=== PATIENT | female | born 1960 | race Caucasian/White ===

== ENCOUNTER 2017-12-25 21:10 | Inpatient (IN) | payer OTHER ==
--- OUTSIDE RECORDS SUMMARY | 2017-12-25 21:12 | XMS REPORT ---
:1960 [facility] Address [address] [place] [address] Care Team Providers Name Role Phone DR NAZANIN RAMÍREZ Unavailable Unavailable Problems This patient has no known problems. Allergies, Adverse Reactions, Alerts This patient has no known allergies or adverse reactions. Medications This patient has no known medications. Results Test Description Test Time Test Comments Text Results Atomic Results Result Comments CHEM8+ i-STAT HSE 2017-04-14 07:20:00 Test Item Value Reference Range Comments SODIUM (test code=VIKI) 137 mmol/L 138-146 POTASSIUM (test code=KI) 4.3 mmol/L 3.5-4.9 CHLORIDE (test code=CLI) 101 mmol/L 98-109 CA IONIZED (test code=ICAI) 1.03 mmol/L 1.12-1.32 GLUCOSE (test code=GLUI) 124 mg/dL 75-100 TCO2 (test code=TCO2) 27 mmol/L 24-29 BUN (test code=BUN1) 40 mg/dL 8-26 CREATININE (test code=CREAI) 0.9 mg/dL 0.6-1.3 ANION GAP (test code=GANG) 15.0 mmol/L GLUCOMETER GLUCOSE- LAB USE [id number] 05:51:00 Test Item Value Reference Range Comments GLUCOMETER (test code=GMG) 104 mg/dL 70-100 GLUCOMETER GLUCOSE- LAB USE [id number] 05:50:00 Test Item Value Reference Range Comments GLUCOMETER (test code=GMG) 108 mg/dL 70-100
[2017-12-25] MEDS ORDERED: NA CHLORIDE 0.9% 1,000 ML ONE (23:28)
[2017-12-25] MEDS ORDERED: ONDANSETRON 4 MG (ODT) TAB ONE (23:37)
[2017-12-26 00:38] LABS: Absolute Lymphocytes (CBC) 1.6 K/uL (0.7-4.9); Absolute Monocytes 0.6 K/uL (0.1-1.3); Absolute Neutrophil 6.7 K/uL (1.8-8.0); Basophils % 1.5 % (0-1.3); Eosinophils % 6.9 % (0-4.4); Hematocrit 32.9 % (36.0-45.0); Lymphocytes % 16.7 % (15.3-44.8); MCH 26.3 pg (27.0-35.0); MCV 82.3 fL (80-100); MPV 7.4 fL (7.6-11.3); Monocytes % 6.4 % (3.3-12.3)
[2017-12-26 00:42] LABS: Protime INR 1.04
[2017-12-26 00:50] LABS: Arterial Blood Carboxyhemoglob 1.9 % (0-1.5); Blood Gas Oxyhemoglobin 90.3 % (94-97); Blood O2 Saturation 92.5 % (92-98.5)
[2017-12-26 00:59] LABS: Albumin 3.7 g/dL (3.2-5.5); Bilirubin Direct 0.2 mg/dL (0-0.2); Bilirubin Total 0.9 mg/dL (0.3-1.2); Protein, Total 7.4 g/dL (6.0-8.3)
[2017-12-26 01:00] LABS: CKMB Creatine Kinase MB 0.8 ng/ml (0.3-4.0)
[2017-12-26 01:07] LABS: Potassium 4.3 mEq/L (3.6-5.0)
[2017-12-26] MEDS ORDERED: ONDANSETRON 4 MG/2 ML VIAL ONE (01:22)
[2017-12-26] MEDS ORDERED: MEPERIDINE HCL 50 MG/ML AMP ONE (01:22)
[2017-12-26 01:24] LABS: Urine Blood NEGATIVE (NEG); Urine Glucose NEGATIVE (NEG); Urine Protein NEGATIVE (NEG); Urine Specific Gravity 1.025 (1.005-1.030); Urine pH 6.5 (5.0-7.0)
[2017-12-26] MEDS ORDERED: PROMETHAZINE 25 MG/ML VIAL ONE (02:25)
[2017-12-26] MEDS ORDERED: MEPERIDINE HCL 25 MG/0.5 ML ONE (02:30)
[2017-12-26] MEDS ORDERED: ACETAMINOPHEN 500 MG TAB PO PRN (02:45)
--- NOTE | 2017-12-26 02:48 | EDPHYS ---
Physician Documentation [facility] Name: Jacy Thompson Age: 57 yrs Sex: Female : 1960 Arrival Date: 12/25/2017 Time: 21:11 Bed 4 Private MD: ED Physician Oscar Rome HPI: 12/25 22:49 This 57 yrs old Female presents to ER via Wheelchair with complaints of Chest pkl Pain, Neck Pain, <24hrs Old, Shoulder Pain. 22:49 The patient or guardian reports chest pain that is located primarily in the right side pkl chest and neck. Onset: today, 6 hour(s) ago. Associated signs and symptoms: Pertinent positives: shortness of breath. The chest pain is described as sharp. S/P triple bypass at [facility] on 12/01/17.. Historical: - Allergies: 21:18 Ativan; la1 21:18 Codeine; la1 21:18 Compazine; la1 21:18 Morphine; la1 21:18 Reglan; la1 - Home Meds: 23:51 clonidine 0.2 mg/24 hr transdermal ptwk 1 patch once wkly [Active]; aspirin 81 mg Oral tl3 chew 1 tab once daily [Active]; atorvastatin 80 mg oral tab [Active]; Colace 100 mg oral cap [Active]; furosemide 20 mg Oral tab [Active]; gabapentin 300 mg oral cap [Active]; glipizide 5 mg Oral tab [Active]; hydrocodone-acetaminophen 5-334 mg/10 mL Oral soln [Active]; metoprolol tartrate 25 mg Oral tab [Active]; Zofran (as hydrochloride) 4 mg/5 mL Oral soln 10 mL 2 times per day [Active]; oxybutynin chloride 10 mg Oral tr24 1 tab once daily [Active]; pantoprazole 40 mg oral TbEC [Active]; paroxetine HCl 40 mg oral tab [Active]; potassium chloride 20 mEq Oral TbER [Active]; magnesium oxide 400 mg Oral cap 400 mg twice a day [Active]; - PMHx: 21:18 CVA; Diabetes - NIDDM; DVT; Endometrosis; Hypertension; Myocardial infarction; la1 - Immunization history:: Adult Immunizations up to date. - Social history:: Smoking status: Patient/guardian denies using tobacco. ROS: 22:49 Eyes: Negative for injury, pain, redness, and discharge, ENT: Negative for injury, pkl pain, and discharge, Neck: Negative for injury, pain, and swelling. 22:49 Cardiovascular: Positive for chest pain. 22:49 Respiratory: Positive for shortness of breath. 22:49 Abdomen/GI: Negative for abdominal pain, nausea, vomiting, and diarrhea. 22:49 Back: Negative for acute changes. 22:49 : Negative for urinary symptoms. 22:49 MS/extremity: Negative for acute changes. 22:49 Skin: Negative for rash. 22:49 Neuro: Negative for altered mental status. Exam: 22:49 Head/Face: Normocephalic, atraumatic. Eyes: Pupils equal round and reactive to light, pkl extra-ocular motions intact. Lids and lashes normal. Conjunctiva and sclera are non-icteric and not injected. Cornea within normal limits. Periorbital areas with no swelling, redness, or edema. ENT: Nares patent. No nasal discharge, no septal abnormalities noted. Tympanic membranes are normal and external auditory canals are clear. Oropharynx with no redness, swelling, or masses, exudates, or evidence of obstruction, uvula midline. Mucous membranes moist. Neck: Trachea midline, no thyromegaly or masses palpated, and no cervical lymphadenopathy. Supple, full range of motion without nuchal rigidity, or vertebral point tenderness. No Meningismus. Chest/axilla: Normal chest wall appearance and motion. Nontender with no deformity. No lesions are appreciated. Cardiovascular: Regular rate and rhythm with a normal S1 and S2. No gallops, murmurs, or rubs. Normal PMI, no JVD. No pulse deficits. Respiratory: Lungs have equal breath sounds bilaterally, clear to auscultation and percussion. No rales, rhonchi or wheezes noted. No increased work of breathing, no retractions or nasal flaring. Abdomen/GI: Soft, non-tender, with normal bowel sounds. No distension or tympany. No guarding or rebound. No evidence of tenderness throughout. Back: No spinal tenderness. No costovertebral tenderness. Full range of motion. Skin: Warm, dry with normal turgor. Normal color with no rashes, no lesions, and no evidence of cellulitis. MS/ Extremity: Pulses equal, no cyanosis. Neurovascular intact. Full, normal range of motion. Neuro: Awake and alert, GCS 15, oriented to person, place, time, and situation. Cranial nerves II-XII grossly intact. Motor strength 5/5 in all extremities. Sensory grossly intact. Cerebellar exam normal. Normal gait. Vital Signs: 21:19 Pulse 57; Resp 16; Temp 99.6(TE); Pulse Ox 100% on R/A; Weight 102.06 kg; Height 5 ft. la1 4 in. (162.56 cm) (M); 21:20 BP 153 / 68; la1 23:51 BP 164 / 70; Pulse 58; Resp 16; Pulse Ox 100% ; tl3 12/26 01:21 BP 131 / 55; Pulse 62; Resp 20; Pulse Ox 94% ; tl3 02:27 BP 120 / 60; Pulse 68; Resp 16; Pulse Ox 97% on 2 lpm NC; bb 03:24 BP 136 / 50; Pulse 59; Resp 18 S; Temp 98(O); Pulse Ox 98% on 2 lpm NC; bb 12/25 21:19 Body Mass Index 38.62 (102.06 kg, 162.56 cm) la1 MDM: 12/25 22:32 Patient medically screened. pkl 12/26 02:42 Data reviewed: vital signs, nurses notes, lab test result(s), EKG, radiologic studies, pkl CT scan, plain films. ED course: Talked to Dr. Donahue ( [facility] ), to give patient diuretics and let her go home. To follow up at [facility] this .. 12/25 22:35 Order name: Urine Dipstick--Ancillary (enter results); Complete Time: 02:04 rg2 12/25 22:47 Order name: Basic Metabolic Panel; Complete Time: 02:04 pkl 12/25 22:47 Order name: BNP; Complete Time: 01:03 pkl 12/25 22:47 Order name: CBC with Diff; Complete Time: 00:50 pkl 12/25 22:47 Order name: Ckmb; Complete Time: 02:04 pkl 12/25 22:47 Order name: CPK; Complete Time: 02:04 pkl 12/25 22:47 Order name: LFT's; Complete Time: 02:04 pkl 12/25 22:47 Order name: Magnesium; Complete Time: 02:04 pkl 12/25 22:47 Order name: PT-INR; Complete Time: 00:50 pkl 12/25 22:47 Order name: Ptt, Activated; Complete Time: 00:50 pkl 12/25 22:47 Order name: Troponin (emerg Dept Use Only); Complete Time: 01:03 pkl 12/25 22:47 Order name: XRAY Chest (1 view) pkl 12/25 22:47 Order name: D-Dimer; Complete Time: 00:50 pkl 12/25 22:47 Order name: ABG; Complete Time: 00:53 pkl 12/25 22:47 Order name: EKG; Complete Time: 22:48 pkl 12/25 22:47 Order name: Cardiac monitoring; Complete Time: 01:11 pkl 12/25 22:47 Order name: EKG - Nurse/Tech; Complete Time: 03:23 pkl 12/25 22:47 Order name: IV Saline Lock; Complete Time: 01:11 pkl 12/25 22:47 Order name: Labs collected and sent; Complete Time: 01:11 pkl 12/25 22:47 Order name: O2 Per Protocol; Complete Time: 01:11 pkl 12/25 22:47 Order name: O2 Sat Monitoring; Complete Time: 01:11 pkl 12/26 01:05 Order name: CT Chest For PE Angio pkl 12/26 02:48 Order name: CONS Physician Consult [facility] 12/26 02:48 Order name: [facility]NE 12/25 22:47 Order name: Urine Dipstick-Ancillary (obtain specimen); Complete Time: 03:23 pkl Administered Medications: 00:59 Drug: NS 0.9% 1000 ml Route: IV; Rate: 100 ml/hr; Site: left antecubital; Delivery: tl3 Primary tubing; 01:31 Follow up: IV Pause: 12/26/2017 01:31; IV Pause Reason: Patient to CT tl3 03:49 Follow up: IV Status: Infusion continued upon admission; IV Intake: 300ml bb 01:20 Drug: Zofran 4 mg Route: IVP; Site: left antecubital; tl3 01:29 Follow up: Response: No adverse reaction; Nausea is decreased tl3 01:20 Drug: Demerol 25 mg Route: IVP; Infused Over: 5 mins; Site: left antecubital; tl3 01:30 Follow up: Response: No adverse reaction; Pain is decreased tl3 02:13 Drug: Phenergan 12.5 mg Route: IVP; Site: left antecubital; bb 03:48 Follow up: Response: Nausea is decreased bb 02:13 Drug: Demerol 25 mg Route: IVP; Site: left antecubital; bb 03:48 Follow up: Response: Pain is decreased bb 02:46 Drug: Lasix 40 mg Route: IVP; Site: left antecubital; ea 03:48 Follow up: Response: No adverse reaction bb Disposition: 12/26/17 02:47 Hospitalization ordered by Carlitos Rose for Observation. Preliminary diagnosis is Chest pain. Acute dyspnea. S/P CABG. Bilateral plueral effusions. - Bed requested for Telemetry/MedSurg (observation). - Status is Observation. bb - Condition is Stable. - Problem is new. - Symptoms are unchanged. UTI on Admission? No Signatures: Dispatcher [employer] EDHanh Zhu, RN Oscar Montaño MD MD pkl Ballard, Brenda RN RN Tomasz James PA PA [id number] Chris Dugan RN RN la1 Agueda Peña RN RN ea Lowrey, Tammy RN RN tl3
--- NOTE | 2017-12-26 02:48 | ER ---
Nurse's Notes [facility] Name: Jacy Thompson Age: 57 yrs Sex: Female : 1960 Arrival Date: 12/25/2017 Time: 21:11 Bed 4 Private MD: Diagnosis: Chest pain. Acute dyspnea. S/P CABG. Bilateral plueral effusions Presentation: 12/25 21:16 Presenting complaint: Patient states: I had a triple bypass at [facility] with Dr Donahue on la1 12/01/2017 and last night I began getting a pain in my left shoulder and trouble catching my breath, right now it hurts when I take a breath and I am having pain in the right side of my neck and arm. Transition of care: patient was not received from another setting of care. Onset of symptoms was December 25, 2017. Care prior to arrival: None. 21:16 Method Of Arrival: Wheelchair la1 21:16 Acuity: TERRY 2 bb Historical: - Allergies: 21:18 Ativan; la1 21:18 Codeine; la1 21:18 Compazine; la1 21:18 Morphine; la1 21:18 Reglan; la1 - Home Meds: 23:51 clonidine 0.2 mg/24 hr transdermal ptwk 1 patch once wkly [Active]; aspirin 81 mg Oral tl3 chew 1 tab once daily [Active]; atorvastatin 80 mg oral tab [Active]; Colace 100 mg oral cap [Active]; furosemide 20 mg Oral tab [Active]; gabapentin 300 mg oral cap [Active]; glipizide 5 mg Oral tab [Active]; hydrocodone-acetaminophen 5-334 mg/10 mL Oral soln [Active]; metoprolol tartrate 25 mg Oral tab [Active]; Zofran (as hydrochloride) 4 mg/5 mL Oral soln 10 mL 2 times per day [Active]; oxybutynin chloride 10 mg Oral tr24 1 tab once daily [Active]; pantoprazole 40 mg oral TbEC [Active]; paroxetine HCl 40 mg oral tab [Active]; potassium chloride 20 mEq Oral TbER [Active]; magnesium oxide 400 mg Oral cap 400 mg twice a day [Active]; - PMHx: 21:18 CVA; Diabetes - NIDDM; DVT; Endometrosis; Hypertension; Myocardial infarction; la1 - Immunization history:: Adult Immunizations up to date. - Social history:: Smoking status: Patient/guardian denies using tobacco. Screenin:51 Abuse screen: Denies threats or abuse. Nutritional screening: No deficits noted. tl3 Tuberculosis screening: No symptoms or risk factors identified. Fall Risk None identified. Assessment: 23:40 General: Appears distressed, uncomfortable, well groomed, well developed, well tl3 nourished, Behavior is calm, cooperative, appropriate for age, anxious. Pain: Complains of pain in chest Pain radiates to left arm. Neuro: Level of Consciousness is awake, alert, obeys commands, Oriented to person, place, time, situation, Appropriate for age. Cardiovascular: Reports chest pain, nausea, Heart tones S1 S2 present Capillary refill < 3 seconds in right in left fingers. Respiratory: Airway is patent Trachea midline. GI: Bowel sounds present X 4 quads. : No signs and/or symptoms were reported regarding the genitourinary system. EENT: No signs and/or symptoms were reported regarding the EENT system. Derm: No signs and/or symptoms reported regarding the dermatologic system. 12/26 01:21 Reassessment: No changes from previously documented assessment. Patient and/or family tl3 updated on plan of care and expected duration. Pain level reassessed. Patient is alert, oriented x 3, equal unlabored respirations, skin warm/dry/pink. pt has periodic chest pain, Dr Rome notified of pain and critical value D-Dimer. 02:14 Reassessment: pt up to bedside commode states she is feeling nauseous, chest pain is bb worse Dr Rome notified, new orders received pt medicated see NOV. 02:46 Reassessment: pt resting with eyes closed, respirations even and unlabored, chest ea expansions even and symmetrical, no s/s of pain or discomfort at this time. 03:31 Reassessment: Patient is alert, oriented x 3, equal unlabored respirations, skin bb warm/dry/pink. IV site intact, patent, with fluids infusing, pt resting quietly. 03:48 Pain: Pain began 1 day ago. bb Vital Signs: 12/25 21:19 Pulse 57; Resp 16; Temp 99.6(TE); Pulse Ox 100% on R/A; Weight 102.06 kg; Height 5 ft. la1 4 in. (162.56 cm) (M); 21:20 BP 153 / 68; la1 23:51 BP 164 / 70; Pulse 58; Resp 16; Pulse Ox 100% ; tl3 0402 01:21 BP 131 / 55; Pulse 62; Resp 20; Pulse Ox 94% ; tl3 02:27 BP 120 / 60; Pulse 68; Resp 16; Pulse Ox 97% on 2 lpm NC; bb 03:24 BP 136 / 50; Pulse 59; Resp 18 S; Temp 98(O); Pulse Ox 98% on 2 lpm NC; bb 12/25 21:19 Body Mass Index 38.62 (102.06 kg, 162.56 cm) la1 ED Course: 12/25 21:11 Patient arrived in ED. as 21:18 Triage completed. la1 21:18 Arm band placed on left wrist. la1 21:33 EKG completed in triage. Results shown to MD. la1 22:32 Oscar Rome MD is Attending Physician. pkl 23:03 XRAY Chest (1 view) In Process Unspecified. EDMS 23:07 Rubina Rdz, SYLVIA is Primary Nurse. tl3 23:51 Patient has correct armband on for positive identification. Placed in gown. Bed in low tl3 position. Call light in reach. Side rails up X2. environmental monitoring technician on. Pulse ox on. NIBP on. 23:51 No provider procedures requiring assistance completed. Inserted Missed attempt(s): 22 tl3 gauge in right upper arm. 12/26 00:41 Missed attempt(s): 20 gauge in right antecubital area. Bleeding controlled, band aid bb applied, catheter tip intact. 00:41 Initial lab(s) drawn, by az, sent to lab. Inserted saline lock: 18 gauge in left bb antecubital area, using aseptic technique. Blood collected. 01:[address] via stretcher. tl3 01:27 Patient maintains SpO2 saturation greater than 95% on room air. tl3 01:53 CT Chest For PE Angio In Process Unspecified. EDMS 02:28 Oxygen administration via nasal cannula \T\ 2L/min. bb 02:45 Carlitos Rose MD is Hospitalizing Provider. pkl 03:48 Patient admitted, IV remains in place. bb Administered Medications: 00:59 Drug: NS 0.9% 1000 ml Route: IV; Rate: 100 ml/hr; Site: left antecubital; Delivery: tl3 Primary tubing; 01:31 Follow up: IV Pause: 12/26/2017 01:31; IV Pause Reason: Patient to CT tl3 03:49 Follow up: IV Status: Infusion continued upon admission; IV Intake: 300ml bb 01:20 Drug: Zofran 4 mg Route: IVP; Site: left antecubital; tl3 01:29 Follow up: Response: No adverse reaction; Nausea is decreased tl3 01:20 Drug: Demerol 25 mg Route: IVP; Infused Over: 5 mins; Site: left antecubital; tl3 01:30 Follow up: Response: No adverse reaction; Pain is decreased tl3 02:13 Drug: Phenergan 12.5 mg Route: IVP; Site: left antecubital; bb 03:48 Follow up: Response: Nausea is decreased bb 02:13 Drug: Demerol 25 mg Route: IVP; Site: left antecubital; bb 03:48 Follow up: Response: Pain is decreased bb 02:46 Drug: Lasix 40 mg Route: IVP; Site: left antecubital; ea 03:48 Follow up: Response: No adverse reaction bb Intake: 03:49 IV: 300ml; Total: 300ml. bb Output: 03:45 Urine: 800ml (Voided); Total: 800ml. lp1 Outcome: 02:47 Decision to Hospitalize by Provider. pkl 03:47 Admitted to Tele accompanied by tech, via stretcher, room 401, with oxygen, with chart, bb Report called to Josee WARD 03:47 Condition: stable 03:47 Instructed on the need for admit. 04:14 Patient left the ED. bb Signatures: Dispatcher [employer] EDMS Oscar Rome MD MD pkRuth Ann Bhakta Brenda RN RN bb Ashley Coulter RN SYLVIA lp1 Chris Dugan RN RN la1 Agueda Peña RN RN ea Lowrey, Tammy, RN RN tl3 Corrections: (The following items were deleted from the chart) 02:14 04/ 21:16 Acuity: TERRY 3 la1 bb
[2017-12-26] MEDS ORDERED: FUROSEMIDE 40 MG/4 ML VIAL ONE (03:02)
[2017-12-26 06:36] LABS: Urine Appearance CLEAR; Urine Bilirubin NEGATIVE (NEG); Urine Blood NEGATIVE (NEG); Urine Color YELLOW; Urine Glucose NEGATIVE (NEG); Urine Protein NEGATIVE (NEG); Urine Specific Gravity 1.015 (1.005-1.030)
[2017-12-26 06:53] LABS: Urine Microscopic Reflex NO UMIC
--- NOTE | 2017-12-26 07:06 | EKG ---
Test Date: 2017-12-25 Test Time: 21:29:45 [employer]: [place] MEASUREMENT RESULTS: Intervals: Rate: 55 MD: 166 QRSD: 90 QT: 432 QTc: 413 Cutler: P: 28 MD: 166 QRS: -1 T: 97 INTERPRETIVE STATEMENTS: Sinus bradycardia Non specific T wave abnormality Abnormal ECG Compared to ECG 10/05/2017 21:44:26 T-wave abnormality now present Electronically Signed On 12-26-17 07:05:29 CDT by Lew Yeung
--- NOTE | 2017-12-26 07:38 | RAD REPORT ---
EXAM DESCRIPTION: RAD - Chest Single View - 12/25/2017 11:03 pm CLINICAL HISTORY: Chest pain, left-sided shoulder pain, difficulty breathing, history of CABG December 01 COMPARISON: September 2017 TECHNIQUE: AP portable chest image was obtained 2259 hours . FINDINGS: Lung volumes are relatively low. Cardiac silhouette is enlarged from chamber enlargement, pleural effusion or a combination. Infiltrate or atelectasis are present at the left base. A small le ft pleural effusion is seen. Vasculature is mildly prominent. Minimal right pleural effusion is seen. Trachea is midline. Sternotomy wires are in place. No pneumothorax. No gross bony abnormality seen. No acute aortic findings suspected. IMPRESSION: Mild failure/ volume overload pattern is identifiable. Left lung base atelectasis is pre sent with small left greater than right pleural effusions. The atelectasis and pleural fluid can still be related to the recent CABG surgical change. The CHF/vo lume overload pattern would not necessarily be expected postsurgical change.
--- NOTE | 2017-12-26 07:47 | RAD REPORT ---
EXAM DESCRIPTION: CT - Chest For Pe Angio - 12/26/2017 1:53 am CLINICAL HISTORY: Chest pain, shortness of breath, bypass surgery December 01 A preliminary written report was provided at the time of the study, and the report was reviewed prio r to final dictation. COMPARISON: None. TECHNIQUE: Dynamically enhanced 3 mm thick images of the chest were obtained during administration o f approximately 150mL Isovue 370 IV contrast. Coronal and oblique reconstruction images were generate d and reviewed. Exam utilizes a protocol to evaluate the pulmonary arterial tree. All CT scans are performed using dose optimization technique as appropriate and may include automated exposure control or mA/KV adjustment according to patient size. FINDINGS: No pulmonary emboli are identified. The aorta as imaged shows no acute or suspicious finding. Mild cardiomegaly is present. Patient also has pericardial effusion 13 mm in thickness. Recent CABG surgical changes are noted to the chest wall . Bilateral lower lobe atelectasis is present more pronounced on the left. Small to moderate bilateral pleural effusions are present also more pronounced on the left. No pneumothorax. Interstitial marking s are prominent. No focal mass or consolidation. No mediastinal or hilar suspicious masses. No chest wall masses or abnormal axillary lymphadenopathy. A 15 millimeter right-side thyroid nodule is present not fully assessed. IMPRESSION: No pulmonary emboli identified. Left greater than right lung base atelectasis and left greater than right small to moderate pleural e ffusions. Cardiomegaly with pericardial effusion. Most of the pleural fluid, atelectasis and pericardial effusi on are related to the recent CABG surgery. A component of CHF/volume overload is not excluded.
[2017-12-26] MEDS: FENTANYL CITR 100 MCG/2 ML IV ONE ×2 (07:48→08:04)
--- NOTE | 2017-12-26 08:08 | P.HP ---
Certification for Inpatient Patient admitted to: Observation With expected LOS: <2 Midnights Patient will require the following post-hospital care: None Practitioner: I am a practitioner with admitting privileges, knowledge of patient current condition, hospital course, and medical plan of care. Services: Services provided to patient in accordance with Admission requirements found in Title 42 Section 412.3 of the Code of Federal Regulations Patient History Date of Service: 12/26/17 Reason for admission: Shortness of breath status post CABG History of Present Illness: Patient is a 57-year-old female who came to the hospital with difficulty breathing. Patient had a 2 vessel CABG performed a couple weeks ago at [facility]. Patient did well postoperatively and was discharged home. Since being at home she is noted she is more short of breath. She started retaining fluid and started becoming edematous. She came into the hospital for further evaluation. In the emergency room her chest x-ray revealed pulmonary edema. ER physician spoke to CT surgeon and [place] and he recommended keeping the patient at our facility in having the patient follow up on . After giving a dose of IV diuretics patient is restored status is improved. Clinically patient feels much better. Will continue with current plan of care and possible discharge home in the next 24-48 hr. Allergies codeine Allergy (Verified 12/26/17 07:50) Unknown lorazepam [From Ativan] Allergy (Verified 12/26/17 07:50) Unknown metoclopramide [From Reglan] Allergy (Verified 12/26/17 07:50) Unknown morphine Allergy (Verified 12/26/17 07:50) Unknown prochlorperazine [From Compazine] Allergy (Verified 12/26/17 07:50) Unknown co Allergy (Uncoded 10/05/17 06:11) Unknown - Past Medical/Surgical History Diabetic: Yes -: Endometriosis -: Hypertension -: Diabetes NIDD -: UTI -: Heart Atack -: Blood Cloths -: Part of thyroid Removed -: Right knee -: Right Ankle -: Hystorectomy - Family History Father Family History: Reviewed- Non-Contributory - Social History Alcohol use: No CD- Drugs: No Caffeine use: No Review of Systems 10-point ROS is otherwise unremarkable Physical Examination - Vital Signs Temperature: 99.2 F Blood Pressure: 118/65 Pulse: 66 Respirations: 18 Pulse Ox (%): 93 - Physical Exam General: Alert, In no apparent distress, Oriented x3 HEENT: Atraumatic, PERRLA, Mucous membr. moist/pink, EOMI, Sclerae nonicteric Neck: Supple, 2+ carotid pulse no bruit, No LAD, Without JVD or thyroid abnormality Respiratory: Clear to auscultation bilaterally, Normal air movement Cardiovascular: Regular rate/rhythm, Normal S1 S2, No murmurs Gastrointestinal: Normal bowel sounds, Soft and benign, Non-distended, No tenderness Musculoskeletal: No clubbing, No swelling, No tenderness Integumentary: No rashes Neurological: Normal gait, Normal speech, Normal strength at 5/5 x4 extr, Normal tone, Sensation intact, Cranial nerves 3-12 intact, Normal affect Lymphatics: No axilla or inguinal lymphadenopathy - Studies Laboratory Data (last 24 hrs) 12/26/17 00:10: PT 12.3, INR 1.04, APTT 26.2 12/26/17 00:10: WBC 9.8, Hgb 10.5 L, Hct 32.9 L, Plt Count 464 H 12/26/17 00:10: B-Natriuretic Peptide 277 H 12/26/17 00:10: Sodium 137, Potassium 4.3, BUN 22 H, Creatinine 1.10 H, Glucose 125 H, Magnesium 2.0, Total Bilirubin 0.9, AST 21, ALT 12, Alkaline Phosphatase 99 Assessment & Plan - Problems (Diagnosis) (1) Acute exacerbation of CHF (congestive heart failure) Current Visit: Yes Status: Acute (2) S/P CABG x 2 Current Visit: Yes Status: Acute (3) CAD (coronary artery disease) Current Visit: Yes Status: Acute (4) Renal insufficiency Current Visit: No Status: Acute (5) Diabetes mellitus Onset Date: 10/05/17 Current Visit: No Status: Chronic Qualifiers: (6) HTN (hypertension) Onset Date: 10/05/17 Current Visit: No Status: Chronic Qualifiers: - Plan 1. Echocardiogram to assess cardiac functioning after Coronary artery bypass grafting 2. Continue on current cardiac meds 3. Start patient on a Beta jessica 4. Cardiology consultation 5. Aggressive diuresis 6. Strict I's and O's 7. Repeat CXR 8. Daily weights 9. Education regarding diet and treatment of congestive heart failure 10. Outpatient follow with CT surgeon on Discharge Plan: Home Plan to discharge in: 48 Hours - Advance Directives Does patient have a Living Will: No Does patient have a Durable POA for Healthcare: No - Code Status/Comfort Care Code Status Assessed: Yes Code Status: Full Code Critical Care: No Time Spent Managing PTS Care (In Minutes): 55
[2017-12-26] MEDS: MEPERIDINE HCL 25 MG/0.5 ML IVP PRN (08:44)
[2017-12-26 08:45] VITALS: BMI 38.6
[2017-12-26] MEDS: ONDANSETRON 4 MG/2 ML VIAL IV PRN (08:49)
[2017-12-26] MEDS ORDERED: OXYBUTYNIN ER 5 MG TAB PO SCH (09:00)
[2017-12-26] MEDS ORDERED: CLONIDINE 0.2 MG/PATCH TD SCH (09:00)
[2017-12-26] MEDS ORDERED: POTASSIUM 25 MEQ EFFERV TAB PO ONE (09:00)
[2017-12-26] MEDS: NIFEDIPINE XL 90 MG TABLET PO SCH (09:00)
[2017-12-26] MEDS: KETOROLAC 30 MG/ML INJ IV PRN ×2 (09:52→20:19)
[2017-12-26] MEDS: DOCUSATE NA 100 MG CAP PO SCH (09:53)
[2017-12-26] MEDS: OXYBUTYNIN CHLORIDE 5 MG TAB PO SCH ×3 (09:53→20:27)
[2017-12-26] MEDS: ASPIRIN EC 81 MG TAB PO SCH (09:53)
[2017-12-26] MEDS: VALSARTAN 80 MG TAB PO SCH (09:53)
[2017-12-26] MEDS: ENOXAPARIN 40 MG/0.4 ML SQ SCH (09:53)
[2017-12-26] MEDS: CLOPIDOGREL 75 MG TABLET PO SCH (09:57)
[2017-12-26] MEDS: PARoxetine HCl 10 MG TAB PO SCH (09:57)
[2017-12-26] MEDS: METOPROLOL TAR 25 MG TAB PO SCH ×2 (09:57→20:19)
[2017-12-26] MEDS: FUROSEMIDE 40 MG/4 ML VIAL IV SCH ×2 (09:57→16:49)
[2017-12-26] MEDS: GABAPENTIN 300 MG CAP PO SCH ×3 (09:58→20:19)
[2017-12-26] MEDS: PANTOPRAZOLE 40MG TABLET PO SCH (09:58)
--- NOTE | 2017-12-26 11:19 | ECHO ---
HEIGHT: 5 ft 4 in WEIGHT: 225 lb 0.061 oz DATE OF STUDY: 12/26/[address]: Carlitos Rose MD 2-DIMENSIONAL: YES M.MODE: YES DOPPLER: YES COLOR FLOW: YES TDS: YES PORTABLE: NO DEFINITY: NO BUBBLE STUDY: NO DIAGNOSIS: CONGESTIVE HEART FAILURE CARDIAC HISTORY: CATHERIZATION: YES SURGERY: YES PROSTHETIC VALVE: NO PACEMAKER: NO MEASUREMENTS (cm) DIASTOLIC (NORMALS) SYSTOLIC (NORMALS) IVSd 1.2 (0.6-1.2) LA Diam (1.9-4.0) LVEF 58% LVIDd 3.3 (3.5-5.7) LVIDs 2.3 (2.0-3.5) %FS 30% LVPWd 1.2 (0.6-1.2) Ao Diam 2.4 (2.0-3.7) 2 DIMENSIONAL ASSESSMENT: RIGHT ATRIUM: DILATED LEFT ATRIUM: NORMAL RIGHT VENTRICLE: NORMAL LEFT VENTRICLE: MILD LEFT VENTRICULAR HYPERTROPHY TRICUSPID VALVE: NORMAL MITRAL VALVE: NORMAL PULMONIC VALVE: NORMAL AORTIC VALVE: NORMAL PERICARDIAL EFFUSION: NONE AORTIC ROOT: NORMAL LEFT VENTRICULAR WALL MOTION: NORMAL DOPPLER/COLOR FLOW: MILD TRICUSPID REGURGITATION. NORMAL RIGHT VENTRICULAR SYSTOLIC PRESSURE. COMMENTS: NORMAL LEFT VENTRICULAR EJECTION FRACTION. DILATED RIGHT ATRIUM. MILD LEFT VENTRICULAR HYPERTROPHY. SMALL, PERICARDIAL EFFUSION. TECHNOLOGIST: Elijah SNIDER
[2017-12-26] MEDS ORDERED: GLUCAGON 1 MG/VIAL IM PRN (11:34)
[2017-12-26] MEDS ORDERED: D50W 25 GM/50 ML SYRINGE IV PRN (11:34)
[2017-12-26] MEDS: VANCOMYCIN 1.75 GM in NA CHLORIDE 0.9% 500 ML IVPB SCH (12:27)
--- NOTE | 2017-12-26 13:21 | CON ---
History Of Present Illness: Ms. Thompson is a woman, who had bypass surgery about 3 weeks ago. It wa s done at [facility]. She saw her doctor last week and things seemed to go okay. Today, she is complainin g of a lot of chest pain more on the right side than anywhere else. It radiates to both shoulders. Even a slight breath not even a very deep breath at all exacerbates it. So far, she has not received any nonsteroidal anti-inflammatory nor steroid. Morphine, Demerol, and other narcotics have not mad e much difference. Her bypass surgery was about 3 weeks ago. She has underlying dyslipidemia, obesi ty, hypertension, and diabetes. She did several stress tests and heart caths in the distant past. A fter passing a nuclear stress test in September, she had more chest pain and ended up getting [facility] [place]. We do not have her coronary anatomy. Since she has been here in the hospital, cardiac enzyme s are normal. A CT angio of the chest reveals no pulmonary embolus, but there is pericardial and ple ural effusion, sternal wires. Physical Examination: Her sternal wound appears like it might be slightly infected. A chest x-ray reveals volume overload pattern, sternal wires. Hemoglobin is 10.5. Creatinine 1.1. Troponin 0.03. B-natriuretic peptide 377. We will get an echocardiogram to see if there is a significant effusion, often it is exaggerated by t he CT scan. If it is large or causing any impending tamponade, she will be transferred to a center that did her heart surgery. CELSA/SUE Voice ID: [id number] Report ID: [id number]
--- NOTE | 2017-12-26 15:07 | RAD REPORT ---
EXAM DESCRIPTION: US - Thyroid Para Parotid Gland - 12/26/2017 2:50 pm CLINICAL HISTORY: Thyroid nodule. COMPARISON: CT 12/26/2017 FINDINGS: The isthmus of the thyroid measures 3 mm. The right lobe of the thyroid measures 3.8 x 2.9 x 2.7 cm. 2.5 x 2.3 cm mildly complex nodule is pres ent in the right lobe. The left lobe appears surgically absent. IMPRESSION: 2.5 x 2.3 cm right thyroid nodule is mildly complex, but the does not demonstrate aggres sive features. Consider follow-up thyroid sonography in 6-12 months for surveillance purposes.
--- NOTE | 2017-12-26 15:42 | PN ---
Date of Progress Note: 12/26/2017 Subjective: The patient is seen and examined. Chart reviewed and case discussed with RN and Dr. Yeung. The patient is having significant amount of pain in her chest and sternotomy site. The patient had recent surgery. Review of Systems: Negative except as above. Medications: Reviewed. Physical Examination: Vital Signs: Temperature 99.2, heart rate 56, blood pressure 118/65, respirations 18, O2 93% on room air. General: Awake, alert, oriented x3, in some moderate distress due to pain. Obese, BMI 38. CV: S1, S2. No murmurs. Regular rate and rhythm. Peripheral pulses present. Respiratory: Moving air well bilaterally. No wheezing. Gastrointestinal: Abdomen is soft, nontender, nondistended. Positive bowel sounds. Extremities: No clubbing, cyanosis, or edema. Neurologic: Nonfocal. Skin: sternotomy site has mild erythema towards the bottom w mild opening of incision. No pus. Laboratory Data: Sodium 137, potassium 4.3, chloride 98, CO2 30, BUN 22, creatinine 1.10, glucose 125, calcium 9.2. WBC 9.8, hemoglobin 10.5, hematocrit 32.9, platelets 464. UA negative. Echocardiogram, EF 58% with dilated right atrium, mild left ventricular hypertrophy, small pericardial effusion. CT angio shows right-sided thyroid nodule at least 15 mm in size. Followup thyroid sonography could be performed. No pulmonary emboli. Left greater than right lung base atelectasis and left greater than right small to moderate pleural effusions. Cardiomegaly with pericardial effusion, atelectasis , and pericardial effusion are related to the recent CABG surgery. Component of CHF, volume overload is not excluded. Assessment And Plan: A 57-year-old female with: 1. Acute exacerbation of congestive heart failure, diastolic dysfunction. We will continue with CHF guidelines and diuresis. Fluid-restricted diet. Monitor I's and O's. 2. Status post recent coronary artery bypass graft x2. The patient does seem to have some erythema around the bottom of the wound. We will culture it and start on prophylactic IV antibiotics. 3. Coronary artery disease, [place] artery and [place] heart status post coronary artery bypass graft. 4. Acute kidney injury. We will continue with IV fluid hydration. 5. Diabetes mellitus type 2 with hyperglycemia without long-term use of insulin. 6. Essential hypertension stable. 7. Thyroid nodule on the right 15 mm. Thyroid U/S 8. Hypertensive heart disease. Plan: We will contact Radiology to see if they can see any signs of osteo or wound dehiscence on CAT scan imaging. The patient had a CT angio earlier. Appreciate Dr. Yeung' input. The patient has followup with her CT surgeon at the [facility] on . GULSHAN Voice ID: [id number] Report ID: [id number] MTDD
[2017-12-26] MEDS: INSULIN -REGULAR HUMAN 50 UNIT/0.5 ML ML SQ SCH ×2 (16:30→20:36)
[2017-12-26] MEDS: glipiZIDE 5 MG TAB PO SCH (16:48)
[2017-12-26] MEDS: ATORVASTATIN 80 MG TAB PO SCH (20:19)
[2017-12-26] MEDS ORDERED: VANCOMYCIN 1.5 GM in NA CHLORIDE 0.9% 500 ML IVPB SCH (21:00)
[2017-12-26] MEDS: HYDROCODONE/APAP 5/325 MG TAB PO PRN (22:29)
[2017-12-27 04:20] LABS: Absolute Lymphocytes (CBC) 1.4 K/uL (0.7-4.9); Absolute Monocytes 0.7 K/uL (0.1-1.3); Absolute Neutrophil 4.8 K/uL (1.8-8.0); Basophils % 1.2 % (0-1.3); Eosinophils % 10.2 % (0-4.4); Hematocrit 24.4 % (36.0-45.0); Lymphocytes % 18.5 % (15.3-44.8); MCV 81.3 fL (80-100); MPV 7.4 fL (7.6-11.3); Monocytes % 8.7 % (3.3-12.3)
[2017-12-27] MEDS: KETOROLAC 30 MG/ML INJ IV PRN ×3 (05:00→18:12)
[2017-12-27 05:04] LABS: Albumin 3.2 g/dL (3.2-5.5); Bilirubin Total 0.8 mg/dL (0.3-1.2); Phosphorus 5.1 mg/dL (2.5-4.3); Potassium 4.1 mEq/L (3.6-5.0); Protein, Total 6.4 g/dL (6.0-8.3)
[2017-12-27] MEDS: INSULIN -REGULAR HUMAN 50 UNIT/0.5 ML ML SQ SCH ×4 (07:30→20:49)
[2017-12-27] MEDS: ASPIRIN EC 81 MG TAB PO SCH (08:48)
[2017-12-27] MEDS: glipiZIDE 5 MG TAB PO SCH ×2 (08:48→17:04)
[2017-12-27] MEDS: METOPROLOL TAR 25 MG TAB PO SCH ×2 (08:48→20:31)
[2017-12-27] MEDS: PARoxetine HCl 10 MG TAB PO SCH (08:48)
[2017-12-27] MEDS: PANTOPRAZOLE 40MG TABLET PO SCH (08:48)
[2017-12-27] MEDS: DOCUSATE NA 100 MG CAP PO SCH (08:48)
[2017-12-27] MEDS: CLOPIDOGREL 75 MG TABLET PO SCH (08:48)
[2017-12-27] MEDS: GABAPENTIN 300 MG CAP PO SCH ×3 (08:52→20:30)
[2017-12-27] MEDS: VALSARTAN 80 MG TAB PO SCH (08:52)
[2017-12-27] MEDS: FUROSEMIDE 40 MG/4 ML VIAL IV SCH (08:54)
[2017-12-27] MEDS: ENOXAPARIN 40 MG/0.4 ML SQ SCH (08:55)
[2017-12-27] MEDS: NIFEDIPINE XL 90 MG TABLET PO SCH (08:56)
[2017-12-27] MEDS ORDERED: CLONIDINE 0.2 MG/PATCH TD SCH (09:00)
[2017-12-27] MEDS: OXYBUTYNIN CHLORIDE 5 MG TAB PO SCH ×3 (09:05→20:30)
[2017-12-27] MEDS: VANCOMYCIN 1.75 GM in NA CHLORIDE 0.9% 500 ML IVPB SCH (12:15)
[2017-12-27] MEDS: MEPERIDINE HCL 25 MG/0.5 ML IVP PRN (14:36)
--- NOTE | 2017-12-27 15:25 | PN ---
Date of Progress Note: 12/27/2017 Subjective: The patient is seen and examined. Chart reviewed and case discussed with RN. The patient feels significantly better. Pain is better tolerated. Medications: Reviewed. Review of Systems: Negative except as above. Physical Examination: Vital Signs: Temperature 97.8, heart rate 85, blood pressure 112/56, respirations 14, O2 95% on 2 L via nasal cannula. General: Awake, alert, oriented x3, somewhat ill-appearing, morbidly obese female. BMI 38. CV: S1, S2. No murmurs. Regular rate and rhythm. Peripheral pulses present. Respiratory: Moving air well bilaterally. No wheezing. Abdomen: Soft, nontender, nondistended. Positive bowel sounds. Extremities: No clubbing, cyanosis, or edema. Skin: The patient has improved erythema around the bottom of the sternotomy site, small opening in the sternotomy site in the area of body fold. No drainage. Neurologic: Nonfocal. Laboratory Data: Sodium 140, potassium 4.1, chloride 101, CO2 29, BUN 35, creatinine 1.73, glucose 90, calcium 8.3, phosphorus 5.1. WBC 7.8, H and H 8.1 and 24.4, platelets 370, neutrophils 61%. Addendum to CT angio chest shows bone and soft tissue changes at the sternum are well within normal limits for recent sternotomy. No abscess or abnormal fluid collections near the surgical site. No bone destruction or other finding to elevate probability of osteomyelitis along the sternotomy site. Echocardiogram shows EF 58%, dilated right atrium, mild left ventricular hypertrophy, small pericardial effusion. Assessment And Plan: A 57-year-old female with. 1. Acute exacerbation of congestive heart failure, diastolic dysfunction. We will continue diuresis. We will decrease Lasix dose due to bump in creatinine. Continue fluid restriction. Monitor I's and O's. 2. Status post recent coronary bypass graft. The patient is being monitored for possible infection of the wound site. Cultures negative to date and will continue prophylactic antibiotics. CT did not show any signs of infection. 3. Coronary artery disease, [place] artery and [place] heart status post coronary artery bypass grafting. 4. Acute kidney injury. Creatinine slightly bumped today. We will continue with IV fluids and decrease Lasix. 5. Diabetes mellitus type 2 with hyperglycemia with long-term use of insulin. We will continue sliding scale. 6. Essential hypertension, stable. 7. Thyroid nodule on the right. Ultrasound of the thyroid shows a 2.5 x 2.3 cm right thyroid nodule was mildly complex, but does not demonstrate any aggressive features. Followup thyroid sonography in 6 months. 8. Hypertensive heart disease. 9. Obesity, BMI 38. Plan: Follow up on cultures. Continue IV antibiotics. Adjust Lasix. /SUE Voice ID: [id number] Report ID: [id number] MTDD
[2017-12-27] MEDS: ATORVASTATIN 80 MG TAB PO SCH (20:30)
[2017-12-27] MEDS: HYDROCODONE/APAP 5/325 MG TAB PO PRN (23:12)
[2017-12-28] MEDS: KETOROLAC 30 MG/ML INJ IV PRN (00:36)
[2017-12-28] MEDS: ONDANSETRON 4 MG/2 ML VIAL IV PRN ×4 (00:36→21:44)
--- NOTE | 2017-12-28 02:41 | PN ---
Date of Progress Note: 12/27/2017 Ms. Thompson was admitted on 12/25/[address] Yeung on 12/26/2017. The patient is status post recent CABG about 3 weeks ago, came in with acute exacerbation of chronic diastolic congestive heart failure, chest pain. CT scan showed pericardial pleural effusion. There was some suspicion that the pericardial effusion may have been enlarged by CT. However, an echocardi ogram that was done yesterday showed small pericardial effusion without any tamponade. She is having significant renal insufficiency. Hemoglobin was down to 8.1. Her echocardiogram showed a normal ej ection fraction of 58% with some left ventricular hypertrophy. I would be careful with the diuresis, may use some gentle hydration and holding her diuresis. She certainly does not need any interventio n as far as her effusion and the pericardium is concerned. There is certainly a possibility that she may have some Ean syndrome with her chest pain and effusions. If her symptoms persist, may be a short course of steroid may be reasonable. Continue present regimen otherwise. TEAGAN/SUE Voice ID: [id number] Report ID: [id number]
[2017-12-28] MEDS: MEPERIDINE HCL 25 MG/0.5 ML IVP PRN ×5 (03:53→21:44)
[2017-12-28 05:16] LABS: Absolute Lymphocytes (CBC) 1.2 K/uL (0.7-4.9); Absolute Monocytes 0.6 K/uL (0.1-1.3); Absolute Neutrophil 5.6 K/uL (1.8-8.0); Basophils % 0.7 % (0-1.3); Eosinophils % 10.9 % (0-4.4); Hematocrit 23.7 % (36.0-45.0); Lymphocytes % 14.2 % (15.3-44.8); MCH 26.5 pg (27.0-35.0); MCV 80.8 fL (80-100); MPV 7.4 fL (7.6-11.3); RBC Red Blood Cell Count 2.93 M/uL (3.86-4.86)
[2017-12-28 05:19] LABS: Albumin 3.1 g/dL (3.2-5.5); Bilirubin Total 0.7 mg/dL (0.3-1.2); Potassium 3.9 mEq/L (3.6-5.0); Protein, Total 6.4 g/dL (6.0-8.3)
[2017-12-28] MEDS ORDERED: POTASSIUM CL SA 10 MEQ TAB PO ONE (05:44)
[2017-12-28] MEDS: INSULIN -REGULAR HUMAN 50 UNIT/0.5 ML ML SQ SCH ×4 (07:30→20:57)
[2017-12-28] MEDS: glipiZIDE 5 MG TAB PO SCH ×2 (07:51→16:32)
[2017-12-28] MEDS: PARoxetine HCl 10 MG TAB PO SCH (08:19)
[2017-12-28] MEDS: NIFEDIPINE XL 90 MG TABLET PO SCH (08:19)
[2017-12-28] MEDS: OXYBUTYNIN CHLORIDE 5 MG TAB PO SCH ×3 (08:20→20:49)
[2017-12-28] MEDS: METOPROLOL TAR 25 MG TAB PO SCH ×2 (08:20→20:50)
[2017-12-28] MEDS: ASPIRIN EC 81 MG TAB PO SCH (08:20)
[2017-12-28] MEDS: PANTOPRAZOLE 40MG TABLET PO SCH (08:20)
[2017-12-28] MEDS: DOCUSATE NA 100 MG CAP PO SCH (08:20)
[2017-12-28] MEDS: ENOXAPARIN 40 MG/0.4 ML SQ SCH (08:21)
[2017-12-28] MEDS: VALSARTAN 80 MG TAB PO SCH (08:21)
[2017-12-28] MEDS: GABAPENTIN 300 MG CAP PO SCH ×3 (08:21→20:48)
[2017-12-28] MEDS: CLOPIDOGREL 75 MG TABLET PO SCH (08:21)
[2017-12-28] MEDS ORDERED: FUROSEMIDE 40 MG/4 ML VIAL IV SCH (09:00)
[2017-12-28] MEDS: NA CHLORIDE 0.9% 1,000 ML IV SCH ×2 (10:16→22:20)
[2017-12-28] MEDS: VANCOMYCIN 1.75 GM in NA CHLORIDE 0.9% 500 ML IVPB SCH (11:40)
[2017-12-28] MEDS: predniSONE 20 MG TAB PO SCH ×2 (12:19→20:49)
[2017-12-28 12:25] LABS: Hematocrit 23.2 % (36.0-45.0)
--- NOTE | 2017-12-28 15:16 | PN ---
Subjective: The patient seen and examined, chart reviewed, and case discussed with RN. The patient still having some pain. Does report itching all over. States that this usually occurs when her kidney function is elevated. Review of Systems: Negative except as above. Medications: Reviewed. Physical Examination: Vital Signs: Temperature 99.2, heart rate 87, blood pressure 112/49, respirations 18, and O2 96% on 3 L via nasal cannula. General: Awake, alert, oriented x3. No acute distress. Obese female. CV: S1, S2. No murmurs. Regular rate and rhythm. Peripheral pulses present. Respiratory: Clear to auscultation bilaterally. No wheezing. No stridor. Gastrointestinal: Abdomen is soft, nontender, nondistended. Positive bowel sounds. Extremities: No clubbing, cyanosis, or edema. Skin: No erythema around the sternotomy site. Small opening around the sternotomy site in the area of the body fold with no drainage. No signs of infection. Neuro: Nonfocal. Laboratory Data: Sodium 137, potassium 3.9, chloride 99, CO2 31, BUN 38, creatinine 1.5, glucose 101, and calcium 8.4. Iron 7, total iron binding capacity 293, transferrin 209, and ferritin 135. WBC 8.4, H and H 7.8, 27.3, and platelets 355. Wound culture with sternotomy site shows 2+ mixed talha. Assessment And Plan: A 57-year-old female with; 1. Acute exacerbation of congestive heart failure, diastolic dysfunction. We will adjust Lasix as creatinine has elevated. Continue fluid restriction and monitor I's and O's. 2. Sternotomy wound site infection, likely just small opening without any drainage with no active infection at this time. The patient is on empiric antibiotics. we will deescalate. Cultures remain negative. No signs of infection on CT scan. 3. Coronary artery disease, [place] artery, [place] heart, status post coronary bypass grafting without angina. 4. Acute kidney injury. Creatinine slightly improved. We will discontinue Lasix and start IV fluids. 5. Diabetes mellitus type 2 with hyperglycemia and long-term use of insulin. we will continue sliding scale. 6. Essential hypertension stable. 7. Obesity, body mass index 38. 8. Hypertensive heart disease. 9. Thyroid nodule on the right lobe. The patient will need followup thyroid sonography in 6 months. 10. Fe def anemia: acute on chronic. Monitor HH, transfuse if <7 Plan: We will start low-dose steroids IV fluids. Monitor creatinine. Likely discharge in the next 24-48 hours. GULSHAN Voice ID: [id number] Report ID: [id number] MTDD
[2017-12-28] MEDS: FERROUS SULFATE 325 MG TAB PO SCH (16:32)
[2017-12-28] MEDS: ATORVASTATIN 80 MG TAB PO SCH (20:49)
[2017-12-28] MEDS: HYDROCODONE/APAP 5/325 MG TAB PO PRN (22:03)
[2017-12-29] MEDS ORDERED: PROMETHAZINE 25 MG/ML VIAL IV ONE (00:49)
[2017-12-29] MEDS: MEPERIDINE HCL 25 MG/0.5 ML IVP PRN ×2 (03:58→08:09)
[2017-12-29 04:12] LABS: Absolute Lymphocytes (CBC) 0.7 K/uL (0.7-4.9); Absolute Monocytes 0.4 K/uL (0.1-1.3); Absolute Neutrophil 6.2 K/uL (1.8-8.0); Basophils % 0.4 % (0-1.3); Hematocrit 24.1 % (36.0-45.0); Lymphocytes % 9.8 % (15.3-44.8); MCH 25.9 pg (27.0-35.0); MCV 81.4 fL (80-100); MPV 7.5 fL (7.6-11.3); Monocytes % 5.8 % (3.3-12.3); RBC Red Blood Cell Count 2.96 M/uL (3.86-4.86)
[2017-12-29 04:48] LABS: Bilirubin Total 0.5 mg/dL (0.3-1.2); Potassium 4.3 mEq/L (3.6-5.0); Protein, Total 6.6 g/dL (6.0-8.3)
[2017-12-29] MEDS: INSULIN -REGULAR HUMAN 50 UNIT/0.5 ML ML SQ SCH ×3 (07:30→16:30)
[2017-12-29] MEDS: ENOXAPARIN 40 MG/0.4 ML SQ SCH (07:57)
[2017-12-29] MEDS: PARoxetine HCl 10 MG TAB PO SCH (07:58)
[2017-12-29] MEDS: ASPIRIN EC 81 MG TAB PO SCH (07:58)
[2017-12-29] MEDS: GABAPENTIN 300 MG CAP PO SCH ×2 (07:58→13:28)
[2017-12-29] MEDS: glipiZIDE 5 MG TAB PO SCH ×2 (07:58→17:18)
[2017-12-29] MEDS: predniSONE 20 MG TAB PO SCH (07:58)
[2017-12-29] MEDS: FERROUS SULFATE 325 MG TAB PO SCH (07:58)
[2017-12-29] MEDS: PANTOPRAZOLE 40MG TABLET PO SCH (07:58)
[2017-12-29] MEDS: VALSARTAN 80 MG TAB PO SCH (07:59)
[2017-12-29] MEDS: OXYBUTYNIN CHLORIDE 5 MG TAB PO SCH ×2 (07:59→13:28)
[2017-12-29] MEDS: DOCUSATE NA 100 MG CAP PO SCH (07:59)
[2017-12-29] MEDS: METOPROLOL TAR 25 MG TAB PO SCH (07:59)
[2017-12-29] MEDS: CLOPIDOGREL 75 MG TABLET PO SCH (07:59)
[2017-12-29 08:03] VITALS: O2SAT 98
[2017-12-29] MEDS: HYDROCODONE/APAP 5/325 MG TAB PO PRN ×2 (12:20→17:18)
[2017-12-29] MEDS: NA CHLORIDE 0.9% 1,000 ML IV SCH (12:21)
[2017-12-29 13:14] LABS: Hematocrit 25.2 % (36.0-45.0)
[2017-12-29 16:35] VITALS: BP 142/72; TEMP 98.3
[2017-12-30] MEDS ORDERED: VANCOMYCIN 1.75 GM in NA CHLORIDE 0.9% 500 ML IVPB SCH ×2
--- NOTE | 2017-12-30 06:04 | DS ---
Date of Discharge: 12/29/2017 Consultants: Lew Yeung M.D. and Francisco Gentile M.D. with Cardiology. Admitting Diagnoses: 1.Acute congestive heart failure exacerbation. 2.Recent coronary artery bypass graft. 3.Coronary artery disease, [place] artery and [place] heart without angina. 4.Renal insufficiency. 5.Diabetes mellitus type 2. 6.Hypertension. Discharge Diagnoses: 1.Acute exacerbation of congestive heart failure, diastolic dysfunction, improved. 2.Sternotomy wound site infection. Cultures negative. 3.Coronary artery disease, [place] artery, and [place] heart, status post coronary artery bypass graft without angina. 4.Acute kidney injury, creatinine improved. 5.Diabetes mellitus type 2 with hyperglycemia with long-term use of insulin. 6.Essential hypertension, stable. 7.Obesity, BMI 38. 8.Hypertensive heart disease. 9.Thyroid nodule on the right lobe. Follow up sonography in 6 months. 10.Iron deficiency anemia. 11.Hypertensive heart disease. Hospital Course: The patient is a 57-year-old female, who recently had CABG at [facility], who c omes in with shortness of breath. The patient was felt to have CHF exacerbation. She was placed on gentle diuresis due to her acute kidney injury. The patient was also seen by Cardiology. She did recio ve significant pain at her sternotomy site and was thought to have possible Ean syndrome. She w as started on steroids and NSAIDs. The patient had improvement in her symptoms. She did have a drop in her hemoglobin; however, repeat levels came up to 8.1. Her D-dimer was elevated. CT angio was d one to rule out PE, which was negative. Incidental finding of thyroid nodule was found. Ultrasound was done, which she was benign, however, recommended 6-month followup. The patient was instructed to provide copies of her medical records to her primary care physician and to have her PCP follow up wi th thyroid nodules in 6 months with a repeat thyroid ultrasound and further evaluation. The patient has had a history of left thyroid nodule, which was benign. On CT she was also not found to have any evidence of infection in the sternotomy site. No fluid collection, no suspicious findings. The pat ient was placed on empiric antibiotics. Her wound culture was obtained from the sternotomy site, i ch showed 2+ mixed talha. The patient was doing well. Her kidney function improved. Echocardiogram was repeated, which did not show any significant effusion, just showed a small pericardial effusion. Her EF was 58%, did show left ventricular hypertrophy. The patient was doing well. She was able t o ambulate. She was weaned off oxygen. Her pain was well controlled. The patient was then cleared for discharge from Cardiology standpoint and was sent home in a stable condition. Activity: No driving or operating heavy machinery while on narcotics. Followup: Follow up with primary care physician in [place] within a week. Followup with CT surgeon at [facility] within one week for wound check. Follow up with irrigation equipment mechanic in [place], Dr. Marv loja, in 2 weeks. Return to ER for worsening condition. Medications: As per medication reconciliation list. Total time spent discharging patient was 41 minute. Physical Examination: General: Awake, alert, oriented, no acute distress. CV: S1, S2. No murmurs. Respiratory: Moving air well bilaterally. Abdomen: Soft, nontender, and nondistended. Positive bowel sounds. Extremities: No clubbing, cyanosis, or edema. Skin: Small area of erythema surrounding a small opening in the sternotomy site. No drainage or acute signs of infection. Neuro: Nonfocal. SA/MODL Voice ID: [id number] Report ID: [id number]
== END 2017-12-29 18:06 | disposition home or self-care (01) | DRG 292 ==
LOC: ER 21:10 → ERHOLD 12-26 02:55 → 4TH 12-26 03:24 → OBSVTOIN 12-27 02:55
PROVIDERS: ADMIT Hospitalist; ATTEND Hospitalist
DX: I11.0 Hypertensive heart disease with heart failure (principal); N17.9 Acute kidney failure, unspecified; I50.31 Acute diastolic (congestive) heart failure; I25.10 Atherosclerotic heart disease of native coronary artery without angina pectoris; Z95.1 Presence of aortocoronary bypass graft; E11.65 Type 2 diabetes mellitus with hyperglycemia; Z79.4 Long term (current) use of insulin; E66.9 Obesity, unspecified; Z68.38 Body mass index [BMI] 38.0-38.9, adult; E04.1 Nontoxic single thyroid nodule; D50.9 Iron deficiency anemia, unspecified
CPT/HCPCS: 36415; 71045; 71275; 76536; 80048; 80053; 80076; 80202; 81003; 82550; 82553; 82565; 82728; 82805; 82962; 83540; 83735; 83880; 84100; 84466; 84484; 84520; 85014; 85018; 85025; 85379; 85610; 85730; 87070; 87205; 93005; 93306; 96361; 96374; 96375; 99285; G0378; J1650; J2175; J2405; J2550; J3010; J7030; J7512; Q9967

== ENCOUNTER 2017-12-31 14:26 | Emergency (ER) | payer OTHER ==
--- OUTSIDE RECORDS SUMMARY | 2017-12-31 14:28 | XMS REPORT ---
:1960 [facility] Address [address] [place] [address] Care Team Providers Name Role Phone DR [...] code=GANG) 15.0 mmol/L GLUCOMETER GLUCOSE- LAB USE [id number] 05:51:00 Test Item Value Reference Range Comments GLUCOMETER (test code=GMG) 104 mg/dL 70-100 GLUCOMETER GLUCOSE- LAB USE [id number] 05:50:00 Test Item Value Reference Range Comments GLUCOMETER (test code=GMG) 108 mg/dL 70-100
[2017-12-31 15:00] LABS: Absolute Lymphocytes (CBC) 1.1 K/uL (0.7-4.9); Absolute Monocytes 0.4 K/uL (0.1-1.3); Absolute Neutrophil 11.2 K/uL (1.8-8.0); Basophils % 0.2 % (0-1.3); Eosinophils % 0.2 % (0-4.4); Hematocrit 29.6 % (36.0-45.0); Lymphocytes % 8.6 % (15.3-44.8); MPV 7.5 fL (7.6-11.3); Monocytes % 3.1 % (3.3-12.3); RBC Red Blood Cell Count 3.69 M/uL (3.86-4.86)
--- NOTE | 2017-12-31 15:07 | RAD REPORT ---
EXAM DESCRIPTION: RAD - Chest Single View - 12/31/2017 2:59 pm CLINICAL HISTORY: Shortness of breath. COMPARISON: 12/25/2017 FINDINGS: Portable technique limits examination quality. Left basilar lung opacity is noted likely representing a combination atelectasis and pleural effusion . It appears similar to the comparative chest radiograph. The heart is moderately enlarged in size wi th sternotomy wires present. No displaced fractures.
[2017-12-31 15:22] LABS: Protime INR 1.11
[2017-12-31 15:23] LABS: Albumin 3.6 g/dL (3.2-5.5); Bilirubin Direct 0.1 mg/dL (0-0.2); Bilirubin Total 0.5 mg/dL (0.3-1.2); Potassium 4.4 mEq/L (3.6-5.0); Protein, Total 7.4 g/dL (6.0-8.3)
[2017-12-31 15:28] LABS: CKMB Creatine Kinase MB 0.9 ng/ml (0.3-4.0)
[2017-12-31] MEDS ORDERED: FUROSEMIDE 40 MG/4 ML VIAL ONE (17:33)
[2017-12-31] MEDS ORDERED: NITROGLYCERIN 1 GM PKT TD ONE (17:33)
[2017-12-31 18:42] LABS: Anisocytosis 1+; Blood Morphology Comment NOTED (NOT SEEN); Platelet Estimate ADEQ; Urine White Blood Cell Casts OK
[2017-12-31 18:50] LABS: Urine Blood NEGATIVE (NEG); Urine Glucose NEGATIVE (NEG); Urine Protein NEGATIVE (NEG); Urine Specific Gravity 1.015 (1.005-1.030); Urine pH 7.5 (5.0-7.0)
[2017-12-31] MEDS ORDERED: ONDANSETRON 4 MG/2 ML VIAL ONE (20:09)
[2017-12-31] MEDS ORDERED: MEPERIDINE HCL 25 MG/0.5 ML ONE ×2 (20:17→21:48)
--- NOTE | 2017-12-31 20:45 | ER ---
Nurse's Notes [facility] Name: Jacy Thompson Age: 57 yrs Sex: Female : 1960 Arrival Date: 12/31/2017 Time: 14:30 Bed 14 Private MD: Diagnosis: Acute combined systolic (congestive) and diastolic (congestive) heart failure;Chest pain, unspecified;S/P CABG;Pleural effusion;Dyspnea Presentation: 12/31 14:40 Presenting complaint: Patient states: increased shortness of breath and chest ss discomfort x 2 days. Transition of care: patient was not received from another setting of care. Onset of symptoms was December 29, 2017. Care prior to arrival: Medication(s) given: ASA, 81 mg, x 4. 14:40 Acuity: TERRY 3 14:40 Method Of Arrival: EMS: [facility] 14:40 Note Pt reports she was recently admitted to [facility] and discharged two ss days ago. Triage Assessment: 14:30 Respiratory: Onset: The symptoms/episode began/occurred yesterday. rb1 14:30 Respiratory: the patient has mild shortness of breath. rb1 Historical: - Allergies: 14:30 Ativan; rb1 14:30 Codeine; rb1 14:30 Compazine; rb1 14:30 Morphine; rb1 14:30 Reglan; rb1 14:30 Demerol; rb1 - Home Meds: 14:30 aspirin 81 mg Oral chew 1 tab once daily [Active]; atorvastatin 80 mg Oral tab rb1 [Active]; clonidine 0.2 mg/24 hr transdermal ptwk 1 patch once wkly [Active]; Colace 100 mg Oral cap [Active]; furosemide 20 mg Oral tab [Active]; gabapentin 300 mg Oral cap [Active]; glipizide 5 mg Oral tab [Active]; hydrocodone-acetaminophen 5-334 mg/10 mL Oral soln [Active]; magnesium oxide 400 mg Oral cap 400 mg twice a day [Active]; metoprolol tartrate 25 mg Oral tab [Active]; oxybutynin chloride 10 mg Oral tr24 1 tab once daily [Active]; pantoprazole 40 mg Oral TbEC [Active]; paroxetine HCl 40 mg Oral tab [Active]; potassium chloride 20 mEq Oral TbER [Active]; Zofran (as hydrochloride) 4 mg/5 mL Oral soln 10 mL 2 times per day [Active]; - PMHx: 14:30 CVA; Diabetes - NIDDM; DVT; Endometrosis; Hypertension; Myocardial infarction; rb1 - PSHx: 14:30 cardiac cath; Hysterectomy; Tonsillectomy; partial thyroid; Appendectomy; rb1 Cholecystectomy; - Immunization history:: Adult Immunizations up to date. - Social history:: Smoking status: Patient/guardian denies using tobacco. Screenin:30 Abuse screen: Denies threats or abuse. Nutritional screening: No deficits noted. rb1 Tuberculosis screening: No symptoms or risk factors identified. Fall Risk None identified. Assessment: 14:30 General: Appears uncomfortable, Behavior is calm, cooperative, Denies fever. Pain: rb1 Complains of pain in mid-sternal area Pain currently is 7 out of 10 on a pain scale. Neuro: Level of Consciousness is awake, alert, obeys commands, Oriented to person, place, time, situation. Cardiovascular: Rhythm is regular. Respiratory: Airway is patent Respiratory effort is even, unlabored, Respiratory pattern is regular, symmetrical, Breath sounds are clear Breath sounds are diminished in left posterior lower lobe. GI: Reports nausea. : No signs and/or symptoms were reported regarding the genitourinary system. Derm: Skin is pink, warm \\T\\ dry. Musculoskeletal: Range of motion: intact in all extremities. 15:30 Reassessment: Patient appears in no apparent distress at this time. Pt. is resting with rb1 eyes closed, respirations even, unlabored. 16:30 Reassessment: Patient appears in no apparent distress at this time. Patient and/or rb1 family updated on plan of care and expected duration. Pain level reassessed. Patient is alert, oriented x 3, equal unlabored respirations, skin warm/dry/pink. 17:27 Reassessment: Patient appears in no apparent distress at this time. No changes from rb1 previously documented assessment. IV infiltrated when I attempted to administer the Lasix 40 mg IVP; Provider notified. 18:00 Reassessment: KAYLIE Davis is at bedside attempting an IV. Provider notified. rb1 18:30 Reassessment: Patient appears in no apparent distress at this time. Patient and/or rb1 family updated on plan of care and expected duration. Pain level reassessed. Patient is alert, oriented x 3, equal unlabored respirations, skin warm/dry/pink. Pt. updated on POC. 18:32 Reassessment: KAYLIE Davis stated, "Elisabeth comes in tonight, I'm just going to ask her to rb1 insert a midline."Provider notified. 19:21 General: Appears in no apparent distress. uncomfortable, Behavior is calm, cooperative, tl2 appropriate for age, Denies fever. Pain: Complains of pain in mid-sternal area. Neuro: Level of Consciousness is awake, alert, obeys commands, Oriented to person, place, time, situation. Cardiovascular: Rhythm is sinus bradycardia. Respiratory: Airway is patent Respiratory effort is even, unlabored, Respiratory pattern is regular, symmetrical, Breath sounds are diminished in left posterior lower lobe. GI: Reports nausea. : No signs and/or symptoms were reported regarding the genitourinary system. Derm: Skin is pale. 19:21 Reassessment: Awaiting dispo decision from provider. tl2 19:50 Reassessment: Pt complained of chest pain and nausea after getting up to go to bathroom. Discussed with Matheus MELTON and pt to get Zofran and Demerol. 20:16 Reassessment: Pt becomes short of breath and pain increases when she ambulates. DENTAL SPECIALIST tl2 ordered for pt to stay in bed, robby ordered. 21:36 Reassessment: Pt states shortness of breath has improved, requested to have more pain tl2 and nausea medication before transport. DENTAL SPECIALIST notified, new orders see NOV. 21:52 Reassessment: Pt stable and ready for transport. tl2 Vital Signs: 14:39 BP 175 / 79; Pulse 45; Resp 16; Temp 98.4(O); Pulse Ox 98% on R/A; Weight 104.33 kg; ss Height 5 ft. 4 in. (162.56 cm); Pain 5/10; 15:30 BP 168 / 74; Pulse 41; Resp 17; Pulse Ox 98% on R/A; rb1 16:30 BP 159 / 64; Pulse 41; Resp 18; Pulse Ox 98% on R/A; rb1 17:19 BP 152 / 61; Pulse 41; Resp 17; Pulse Ox 99% on R/A; rb1 18:30 BP 150 / 78; Pulse 41; Resp 15; Pulse Ox 99% on R/A; rb1 19:21 Pulse 41; Resp 20; Pulse Ox 99% on R/A; tl2 20:01 BP 191 / 83; Pulse 39; Resp 18; Pulse Ox 100% on R/A; Pain 8/10; fc 20:16 BP 179 / 91; Pulse 49; Resp 20; Pulse Ox 100% on R/A; tl2 21:36 BP 175 / 85; Pulse 42; Resp 22; Pulse Ox 99% on R/A; tl2 14:39 Body Mass Index 39.48 (104.33 kg, 162.56 cm) ED Course: 14:30 Patient arrived in ED. rb1 14:30 Patient has correct armband on for positive identification. Bed in low position. Call rb1 light in reach. Side rails up X 1. cylinder die machine helper on. Pulse ox on. NIBP on. 14:39 Matheus Gresham NP is PHCP. pm1 14:39 Aniket Vera MD is Attending Physician. pm1 14:39 Arm band placed on right wrist. ss 14:42 Triage completed. ss 14:46 EKG done, by ED staff, reviewed by Matheus Gresham NP. jb1 14:52 Initial lab(s) drawn, by in, sent to lab. Inserted saline lock: 24 gauge in left upper hj arm, using aseptic technique. Blood collected. 14:59 XRAY Chest (1 view) In Process Unspecified. EDMS 15:07 Lorrie Medrano, RN is Primary Nurse. rb1 18:45 Inserted 18 gauge 10 cm midline to right upper basilic vein on first attempt. line with fc good blood return and flushes well. 19:00 Report given to SYLVIA Hannon. rb1 20:15 Thompson cath inserted, using sterile technique, 16 Fr., by sewage screen operator, balloon inflated, to tl2 gravity drainage, returned clear yellow urine. 21:54 No provider procedures requiring assistance completed. Patient transferred, IV remains tl2 in place. Administered Medications: 17:20 Drug: Nitro-Bid Ointment 2 % 1 inches Route: Transdermal; Site: anterior chest wall; rb1 19:13 Drug: Lasix 40 mg {Note: Had to wait for IV access..} Route: IVP; Site: right upper arm;tl2 21:55 Follow up: Response: No adverse reaction; Marked relief of symptoms tl2 19:56 Drug: Zofran 4 mg Route: IVP; Site: right upper arm; fc 20:30 Follow up: Response: No adverse reaction; Nausea is decreased tl2 20:01 Drug: Demerol 25 mg Route: IVP; Site: right upper arm; fc 20:30 Follow up: Response: No adverse reaction; Pain is decreased tl2 21:38 Drug: Demerol 25 mg Route: IVP; Site: right upper arm; tl2 21:56 Follow up: Response: No adverse reaction tl2 21:39 Drug: Phenergan 12.5 mg Route: IVP; Site: right upper arm; tl2 21:56 Follow up: Response: No adverse reaction tl2 Output: 21:55 Urine: 900ml (Thompson); Total: 900ml. tl2 Outcome: 20:44 ER care complete, transfer ordered by . pm1 21:54 Transferred by ground EMS to [facility], Transfer form tl2 completed. 21:54 Condition: stable 21:54 Discharge instructions given to patient, Instructed on the need for transfer. 21:58 Patient left the ED. tl2 Signatures: Dispatcher [employer] EDMS Juan Jose Locke jb1 Amada Radford RN RN Susan Rucker RN RN ss Danyel Mejia RN RN Lorrie Medrano, RN RN rb1 Matheus Gresham, GERONIMO DENTAL SPECIALIST pm1 Riddhi Alvarez, SYLVIA RN tl2 Corrections: (The following items were deleted from the chart) 14:43 14:40 Presenting complaint: Patient states: increased shortness of breath and chest ss discomfort x 2 days. 14:43 14:40 Method Of Arrival: Ambulatory [facility] 15:23 14:52 Inserted saline lock: 14 gauge in left upper arm, using aseptic technique. Blood rb1 collected. 18:33 17:27 Reassessment: Patient appears in no apparent distress at this time. No changes rb1 from previously documented assessment. rb1
--- NOTE | 2017-12-31 20:45 | EDPHYS ---
Physician Documentation [facility] Name: Jacy Thompson Age: 57 yrs Sex: Female : 1960 Arrival Date: 12/31/2017 Time: 14:30 Bed 14 Private MD: ED Physician Aniket Vera HPI: 12/31 15:00 This 57 yrs old Female presents to ER via EMS with complaints of Shortness Of pm1 Breath. 15:00 The patient has shortness of breath at rest. pm1 17:00 Onset: The symptoms/episode began/occurred 12/25/2017. Duration: The symptoms are pm1 continuous. The patient's shortness of breath is aggravated by nothing, is alleviated by nothing. Associated signs and symptoms: Pertinent positives: chest pain, nausea, Pertinent negatives: non-productive cough, productive cough, diaphoresis, fever, vomiting. Severity of symptoms: in the emergency department the symptoms are worse. The patient has been recently been admitted at [facility], was discharged earlier this week. Patient was seen in the ER on 12/25/2017 for shortness of breath and chest pain. Patient was admitted with a clinical presentation of CHF exacerbation and sternotomy wound site infection. Patient was discharged home on 12/29/2017 after evaluation by cardiology. 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 Patient had discharge and and an area of dehiscence from the distal aspect of the sternotomy wound site. Patient's wound site cultures showed mixed normal talha and she was discharged home with doxycycline. Patient reports the following day after discharge, 12/30/2017, she started to have shortness of breath and chest pain again. She presented to her primary care provider today and was referred to the ER for further treatment and evaluation. Historical: - Allergies: 14:30 Ativan; rb1 14:30 Codeine; rb1 14:30 Compazine; rb1 14:30 Morphine; rb1 14:30 Reglan; rb1 14:30 Demerol; rb1 - Home Meds: 14:30 aspirin 81 mg Oral chew 1 tab once daily [Active]; atorvastatin 80 mg Oral tab rb1 [Active]; clonidine 0.2 mg/24 hr transdermal ptwk 1 patch once wkly [Active]; Colace 100 mg Oral cap [Active]; furosemide 20 mg Oral tab [Active]; gabapentin 300 mg Oral cap [Active]; glipizide 5 mg Oral tab [Active]; hydrocodone-acetaminophen 5-334 mg/10 mL Oral soln [Active]; magnesium oxide 400 mg Oral cap 400 mg twice a day [Active]; metoprolol tartrate 25 mg Oral tab [Active]; oxybutynin chloride 10 mg Oral tr24 1 tab once daily [Active]; pantoprazole 40 mg Oral TbEC [Active]; paroxetine HCl 40 mg Oral tab [Active]; potassium chloride 20 mEq Oral TbER [Active]; Zofran (as hydrochloride) 4 mg/5 mL Oral soln 10 mL 2 times per day [Active]; - PMHx: 14:30 CVA; Diabetes - NIDDM; DVT; Endometrosis; Hypertension; Myocardial infarction; rb1 - PSHx: 14:30 cardiac cath; Hysterectomy; Tonsillectomy; partial thyroid; Appendectomy; rb1 Cholecystectomy; - Immunization history:: Adult Immunizations up to date. - Social history:: Smoking status: Patient/guardian denies using tobacco. ROS: 17:00 Constitutional: Negative for fever, chills, and weight loss, Eyes: Negative for injury, pm1 pain, redness, and discharge, ENT: Negative for injury, pain, and discharge, Neck: Negative for injury, pain, and swelling. 17:00 Abdomen/GI: Negative for abdominal pain, nausea, vomiting, diarrhea, and constipation, Back: Negative for injury and pain, : Negative for injury, bleeding, discharge, and swelling, MS/Extremity: Negative for injury and deformity, Neuro: Negative for headache, weakness, numbness, tingling, and seizure. 17:00 Cardiovascular: Positive for chest pain, of the mid-sternal area, edema, Negative for palpitations. 17:00 Respiratory: Positive for shortness of breath, at rest. Negative for cough, wheezing. 17:00 Skin: Positive for small opening at sternotomy site. Exam: 17:00 Constitutional: This is a well developed, well nourished patient who is awake, alert, pm1 and in no acute distress. Head/Face: Normocephalic, atraumatic. Eyes: Pupils equal round and reactive to light, extra-ocular motions intact. Lids and lashes normal. Conjunctiva and sclera are non-icteric and not injected. Cornea within normal limits. Periorbital areas with no swelling, redness, or edema. ENT: Nares patent. No nasal discharge, no septal abnormalities noted. Tympanic membranes are normal and external auditory canals are clear. Oropharynx with no redness, swelling, or masses, exudates, or evidence of obstruction, uvula midline. Mucous membranes moist. Neck: Trachea midline, no thyromegaly or masses palpated, and no cervical lymphadenopathy. Supple, full range of motion without nuchal rigidity, or vertebral point tenderness. No Meningismus. 17:00 Respiratory: Lungs have equal breath sounds bilaterally, clear to auscultation and percussion. No rales, rhonchi or wheezes noted. No increased work of breathing, no retractions or nasal flaring. Abdomen/GI: Soft, non-tender, with normal bowel sounds. No distension or tympany. No guarding or rebound. No evidence of tenderness throughout. Back: No spinal tenderness. No costovertebral tenderness. Full range of motion. Skin: Warm, dry with normal turgor. Normal color with no rashes, no lesions, and no evidence of cellulitis. MS/ Extremity: Pulses equal, no cyanosis. Neurovascular intact. Full, normal range of motion. 17:00 Chest/axilla: Inspection: small 3mm x 3mm circular wound dehiscence at distal end of sternotomy site, Palpation: crepitus, is not appreciated, tenderness, of the mid-sternal area, that totally reproduces the patient's complaints. 17:00 Cardiovascular: Rate: bradycardic, Rhythm: regular, Pulses: no pulse deficits are appreciated, Heart sounds: normal, Edema: pedal edema, that is mild. 17:00 Neuro: Orientation: is normal, Motor: moves all fours, Nonfocal. Vital Signs: 14:39 BP 175 / 79; Pulse 45; Resp 16; Temp 98.4(O); Pulse Ox 98% on R/A; Weight 104.33 kg; ss Height 5 ft. 4 in. (162.56 cm); Pain 5/10; 15:30 BP 168 / 74; Pulse 41; Resp 17; Pulse Ox 98% on R/A; rb1 16:30 BP 159 / 64; Pulse 41; Resp 18; Pulse Ox 98% on R/A; rb1 17:19 BP 152 / 61; Pulse 41; Resp 17; Pulse Ox 99% on R/A; rb1 18:30 BP 150 / 78; Pulse 41; Resp 15; Pulse Ox 99% on R/A; rb1 19:21 Pulse 41; Resp 20; Pulse Ox 99% on R/A; tl2 20:01 BP 191 / 83; Pulse 39; Resp 18; Pulse Ox 100% on R/A; Pain 8/10; fc 20:16 BP 179 / 91; Pulse 49; Resp 20; Pulse Ox 100% on R/A; tl2 21:36 BP 175 / 85; Pulse 42; Resp 22; Pulse Ox 99% on R/A; tl2 14:39 Body Mass Index 39.48 (104.33 kg, 162.56 cm) ss MDM: 14:41 Patient medically screened. pm1 17:45 Physician consultation: Jose Moreno MD was called at 17:45, was contacted at 17:45, pm1 regarding admission, patient's condition, after a discussion of the case, a recommendation for transfer for higher level of care is made. 18:00 Counseling: I had a detailed discussion with the patient and/or guardian regarding: the pm1 historical points, exam findings, and any diagnostic results supporting the discharge/admit diagnosis, lab results, radiology results, the need to transfer to another facility, recommendation from hospitalist. 19:47 Physician consultation: [facility] Market Research Assistant Gema was contacted at 19:47, regarding pm1 regarding transfer, patient's condition, Recommends consultation with cardiothoracic surgery service. 20:30 Physician consultation: Shell Art was contacted at 20:30, regarding regarding pm1 transfer, patient's condition, and will see patient. 20:44 Data reviewed: vital signs. pm1 12/31 14:45 Order name: Basic Metabolic Panel; Complete Time: 15:57 pm1 12/31 14:45 Order name: BNP; Complete Time: 15:57 pm1 12/31 14:45 Order name: CBC with Diff; Complete Time: 18:50 pm1 12/31 14:45 Order name: Ckmb; Complete Time: 15:57 pm1 12/31 14:45 Order name: CPK; Complete Time: 15:57 pm1 12/31 14:45 Order name: LFT's; Complete Time: 15:57 pm1 12/31 14:45 Order name: Magnesium; Complete Time: 15:57 pm1 12/31 14:45 Order name: PT-INR; Complete Time: 15:57 pm1 12/31 14:45 Order name: Ptt, Activated; Complete Time: 15:57 pm1 12/31 14:45 Order name: Troponin (emerg Dept Use Only); Complete Time: 15:57 pm1 12/31 14:45 Order name: XRAY Chest (1 view); Complete Time: 15:57 pm1 12/31 17:32 Order name: Urine Dipstick--Ancillary (enter results); Complete Time: 18:50 bd 12/31 18:42 Order name: CBC Smear Scan; Complete Time: 18:50 EDMS 12/31 14:45 Order name: EKG; Complete Time: 14:45 pm1 12/31 14:45 Order name: Cardiac monitoring; Complete Time: 14:46 pm1 12/31 14:45 Order name: EKG - Nurse/Tech; Complete Time: 14:46 pm1 12/31 14:45 Order name: IV Saline Lock; Complete Time: 15:40 pm1 12/31 14:45 Order name: Labs collected and sent; Complete Time: 15:40 pm1 12/31 14:45 Order name: O2 Per Protocol; Complete Time: 14:46 pm1 12/31 14:45 Order name: O2 Sat Monitoring; Complete Time: 14:46 pm1 12/31 14:45 Order name: Urine Dipstick-Ancillary (obtain specimen); Complete Time: 18:59 pm1 12/31 20:16 Order name: Thompson; Complete Time: 20:16 tl2 Administered Medications: 17:20 Drug: Nitro-Bid Ointment 2 % 1 inches Route: Transdermal; Site: anterior chest wall; rb1 19:13 Drug: Lasix 40 mg {Note: Had to wait for IV access..} Route: IVP; Site: right upper arm;tl2 21:55 Follow up: Response: No adverse reaction; Marked relief of symptoms tl2 19:56 Drug: Zofran 4 mg Route: IVP; Site: right upper arm; fc 20:30 Follow up: Response: No adverse reaction; Nausea is decreased tl2 20:01 Drug: Demerol 25 mg Route: IVP; Site: right upper arm; fc 20:30 Follow up: Response: No adverse reaction; Pain is decreased tl2 21:38 Drug: Demerol 25 mg Route: IVP; Site: right upper arm; tl2 21:56 Follow up: Response: No adverse reaction tl2 21:39 Drug: Phenergan 12.5 mg Route: IVP; Site: right upper arm; tl2 21:56 Follow up: Response: No adverse reaction tl2 Disposition: 01/01 07:09 Co-signature as Attending Physician, Aniket Vera MD. rn Disposition: 12/31/17 20:44 Transfer ordered to [facility]. Diagnosis are Acute combined systolic (congestive) and diastolic (congestive) heart failure, Chest pain, unspecified, S/P CABG, Pleural effusion, Dyspnea. - Reason for transfer: Higher level of care. - Accepting physician is [facility]. - Condition is Stable. - Problem is new. - Symptoms have improved. Signatures: Dispatcher [employer] EDAmada Viramontes RN RN fc Nieto, Roman, MD MD rn Smirch, Shelby, RN RN ss Barber, Rebecca, RN RN Matheus Conti, GERONIMO DRYWALL CONTRACTOR pm1 Riddhi Alvarez RN RN tl2
[2017-12-31] MEDS ORDERED: PROMETHAZINE 25 MG/ML VIAL ONE (21:48)
--- NOTE | 2017-12-31 21:48 | EKG ---
Test Date: 2017-12-31 Test Time: 14:36:31 Butcher: ELOISA MEASUREMENT RESULTS: Intervals: Rate: 44 TX: 168 QRSD: 102 QT: 570 QTc: 487 [place]: P: 47 TX: 168 QRS: 6 T: 75 INTERPRETIVE STATEMENTS: Marked sinus bradycardia Nonspecific ST and T wave abnormality Prolonged QT Abnormal ECG Compared to ECG 12/25/2017 21:29:45 ST (T wave) deviation now present Prolonged QT interval now present T-wave abnormality no longer present Electronically Signed On 12-31-17 21:47:46 CDT by Lew Yeung
[2017-12-31 22:05] VITALS: TEMP 98.4
[2017-12-31 22:13] VITALS: BP 175/85; O2SAT 99
== END 2017-12-31 21:58 | disposition short-term general hospital (02) ==
LOC: ER 14:26
DX: I50.41 Acute combined systolic (congestive) and diastolic (congestive) heart failure (principal); J90 Pleural effusion, not elsewhere classified; R07.9 Chest pain, unspecified; Z95.1 Presence of aortocoronary bypass graft; I10 Essential (primary) hypertension; E11.9 Type 2 diabetes mellitus without complications; Z86.718 Personal history of other venous thrombosis and embolism; Z79.01 Long term (current) use of anticoagulants; Z79.82 Long term (current) use of aspirin; Z88.5 Allergy status to narcotic agent; Z88.6 Allergy status to analgesic agent; Z88.8 Allergy status to other drugs, medicaments and biological substances
CPT/HCPCS: 36415; 51702; 71045; 80048; 80076; 81003; 82550; 82553; 83735; 83880; 84484; 85025; 85610; 85730; 93005; 96374; 96375; 99285; J2175; J2405; J2550

== ENCOUNTER 2018-10-13 08:49 | Emergency (ER) | payer OTHER ==
--- OUTSIDE RECORDS SUMMARY | 2018-10-13 08:52 | XMS REPORT ---
:1960 Author Organization [facility] Address [address] [place] [address] Care Team Providers Name Role Phone DR [...] code=GANG) 15.0 mmol/L GLUCOMETER GLUCOSE- LAB USE [id number] 05:51:00 Test Item Value Reference Range Comments GLUCOMETER (test code=GMG) 104 mg/dL 70-100 GLUCOMETER GLUCOSE- LAB USE [id number] 05:50:00 Test Item Value Reference Range Comments GLUCOMETER (test code=GMG) 108 mg/dL 70-100
[2018-10-13] MEDS ORDERED: PROMETHAZINE 25 MG/ML VIAL ONE (11:56)
[2018-10-13] MEDS ORDERED: NA CHLORIDE 0.9% 1,000 ML ONE (11:57)
[2018-10-13] MEDS ORDERED: FENTANYL CITR 100 MCG/2 ML ONE (11:57)
[2018-10-13 12:06] LABS: Albumin 3.7 g/dL (3.4-5.0); Bilirubin Direct 0.1 mg/dL (0-0.2); Protein, Total 7.8 g/dL (6.4-8.2)
[2018-10-13] MEDS ORDERED: MEPERIDINE HCL 25 MG/0.5 ML ONE (12:11)
[2018-10-13] MEDS ORDERED: cloNIDine HCl 0.1 MG TAB ONE (12:54)
[2018-10-13 13:26] LABS: Urine Blood TRACE (NEG); Urine Glucose NEGATIVE (NEG); Urine Protein TRACE (NEG); Urine Specific Gravity 1.015 (1.005-1.030)
--- NOTE | 2018-10-13 16:20 | ER ---
Nurse's Notes [facility] Name: Jacy Thompson Age: 58 yrs Sex: Female : 1960 Arrival Date: 10/13/2018 Time: 08:52 Bed 23 Private MD: Diagnosis: Essential (primary) hypertension;Unspecified renal colic Presentation: 10/13 09:08 Presenting complaint: Patient states: was at Dr. Mann's office, BP was reading high, iw sent over here, took her BP meds this morning, c/o headache, groin pain, left flank spasms, CT done yesterday and set up for lithotripsy for Tuesday. Transition of care: patient was not received from another setting of care. Onset of symptoms was October 13, 2018. Risk Assessment: Do you want to hurt yourself or someone else? Patient reports no desire to harm self or others. Initial Sepsis Screen: Does the patient meet any 2 criteria? No. Patient's initial sepsis screen is negative. Does the patient have a suspected source of infection? No. Patient's initial sepsis screen is negative. Care prior to arrival: None. 09:08 Method Of Arrival: Ambulatory iw 09:08 Acuity: TERRY 3 iw Triage Assessment: 15:57 Pain: Also complains of no other associated symptoms. mg2 16:38 Headache History: The patient has had previous headaches and this one is similar to tl3 previous episodes. General: Appears in no apparent distress. Pain: Pain. Historical: - Allergies: 09:12 Ativan; iw 09:12 Codeine; iw 09:12 Compazine; iw 09:12 Morphine; iw 09:12 Reglan; iw 09:12 Latex, Natural Rubber; iw - Home Meds: 09:12 aspirin 81 mg Oral chew 1 tab once daily [Active]; atorvastatin 80 mg Oral tab iw [Active]; clonidine 0.2 mg/24 hr transdermal ptwk 1 patch once wkly [Active]; Colace 100 mg Oral cap [Active]; furosemide 20 mg Oral tab [Active]; gabapentin 300 mg Oral cap [Active]; glipizide 5 mg Oral tab [Active]; hydrocodone-acetaminophen 5-334 mg/10 mL Oral soln [Active]; magnesium oxide 400 mg Oral cap 400 mg twice a day [Active]; metoprolol tartrate 25 mg Oral tab [Active]; oxybutynin chloride 10 mg Oral tr24 1 tab once daily [Active]; pantoprazole 40 mg Oral TbEC [Active]; paroxetine HCl 40 mg Oral tab [Active]; potassium chloride 20 mEq Oral TbER [Active]; Zofran (as hydrochloride) 4 mg/5 mL Oral soln 10 mL 2 times per day [Active]; - PMHx: 09:12 CVA; Diabetes - NIDDM; DVT; Endometrosis; Hypertension; Myocardial infarction; iw - Immunization history:: Adult Immunizations up to date. - Social history:: Smoking status: Patient/guardian denies using tobacco. - Ebola Screening: : Patient negative for fever greater than or equal to 101.5 degrees Fahrenheit, and additional compatible Ebola Virus Disease symptoms Patient denies exposure to infectious person Patient denies travel to an Ebola-affected area in the 21 days before illness onset No symptoms or risks identified at this time. Screenin:50 Abuse screen: Denies threats or abuse. Denies injuries from another. Nutritional iw screening: No deficits noted. Tuberculosis screening: No symptoms or risk factors identified. Fall Risk IV access (20 points). Assessment: 13:27 General: Appears uncomfortable, obese, well developed, well nourished, Behavior is tl3 cooperative, appropriate for age. Pain: Complains of pain in pain in chest, headache, flanks. 13:29 Neuro: No deficits noted. Level of Consciousness is awake, alert, obeys commands, tl3 Oriented to person, place, time, situation, Appropriate for age. Cardiovascular: Patient's skin is warm and dry. Respiratory: Airway is patent Respiratory effort is even, unlabored, Respiratory pattern is regular, symmetrical. 16:21 Reassessment: No changes from previously documented assessment. Patient and/or family mg2 updated on plan of care and expected duration. Pain level reassessed. Patient is alert, oriented x 3, equal unlabored respirations, skin warm/dry/pink. Vital Signs: 09:12 BP 156 / 107; Pulse 92; Resp 18; Temp 97.9(TE); Pulse Ox 98% on R/A; Weight 108.86 kg; iw Height 5 ft. 4 in. (162.56 cm); Pain 6/10; 11:32 BP 146 / 105; Pulse 79; Resp 20; Temp 98.2(O); Pulse Ox 96% on R/A; Pain 8/10; mh5 13:29 BP 125 / 74; Pulse 82; Resp 16; Pulse Ox 96% on R/A; tl3 15:57 BP 145 / 95; Pulse 77; Resp 18; Pulse Ox 96% on R/A; tl3 09:12 Body Mass Index 41.19 (108.86 kg, 162.56 cm) ED Course: 08:52 Patient arrived in ED. rg4 09:10 Triage completed. iw 09:12 Arm band placed on. iw 10:04 Debbi Keene FNP-C is PHCP. snw 10:04 Aniket Vera MD is Attending Physician. snw 10:04 EKG done, by vtc technician. reviewed by Aniket Vera MD. 3 10:09 David Hensley, RN is Primary Nurse. ja1 11:15 Warm blanket given. Pulse ox on. NIBP on. mh5 11:15 Missed attempt(s): 20 gauge in right antecubital area. 22 gauge forearm. antecubital mh5 area. 11:48 Initial lab(s) drawn, by me, sent to lab. Inserted saline lock: 22 gauge in left iw antecubital area, using aseptic technique. Blood collected. 11:53 Basic Metabolic Panel Sent. mh5 11:53 CBC with Diff Sent. mh5 11:53 Hepatic Function Sent. mh5 11:54 Lipase Sent. mh5 13:29 Patient has correct armband on for positive identification. Placed in gown. Bed in low tl3 position. Call light in reach. Side rails up X2. 13:29 No provider procedures requiring assistance completed. tl3 13:40 Lab(s) recollected, by me, sent to lab. jp3 16:35 IV discontinued, intact, bleeding controlled, No redness/swelling at site. Pressure tl3 dressing applied. Administered Medications: 11:56 CANCELLED (other intervention used): fentaNYL (PF) 25 mcg IVP once snw 12:04 Drug: NS 0.9% 1000 ml Route: IV; Rate: 125 ml/hr; Site: left antecubital; ja1 12:21 Follow up: Response: No adverse reaction ja1 12:04 Drug: Phenergan 6.25 mg Route: IVP; Site: left antecubital; ja1 12:20 Follow up: Response: No adverse reaction; Nausea is decreased ja1 12:04 Drug: Demerol 25 mg Route: IVP; Site: left antecubital; ja1 12:21 Follow up: Response: No adverse reaction; Pain is decreased ja1 13:08 Follow up: Response: Pain is decreased ja1 12:45 Drug: cloNIDine 0.1 mg Route: PO; ja1 13:30 Follow up: Response: Blood pressure is lowered tl3 16:25 Drug: Demerol 50 mg Route: IM; Site: left gluteus; tl3 16:25 Follow up: Response: Medication administered at discharge. tl3 Outcome: 16:19 Discharge ordered by . snw 16:35 Discharged to home ambulatory. tl3 16:35 Condition: stable 16:35 Discharge instructions given to patient, waiting for son to get here to drive her home Instructed on discharge instructions, follow up and referral plans. Demonstrated understanding of instructions, follow-up care. 16:40 Patient left the ED. tl3 Signatures: Debbi Keene, SENIOR MEDICAL WRITER-C SENIOR MEDICAL WRITER-Csnw Tracie Yun, RN RN Isabella Aviles 4 Patty Nicole 5 David Hensley RN RN ja1 Rubina Rdz RN RN tl3 Terry Marin RN RN mg2 Nancy Rosales 3 Tim Villalta jp3 Corrections: (The following items were deleted from the chart) 09:14 09:12 BP 162 / 115; Pulse 92bpm; Resp 18bpm; Pulse Ox 98% RA; Temp 97.9F Temporal; iw 108.86 kg; Height 5 ft. 4 in.; BMI: 41.2; Pain 6/10; iw 16:22 15:57 Pulse 77bpm; Resp 18bpm; Pulse Ox 96% RA; mg2 tl3
--- NOTE | 2018-10-13 16:20 | EDPHYS ---
Physician Documentation [facility] Name: Jacy Thompson Age: 58 yrs Sex: Female : 1960 Arrival Date: 10/13/2018 Time: 08:52 Bed 23 Private MD: ED Physician Aniket Vera HPI: 10/13 14:20 This 58 yrs old Female presents to ER via Ambulatory with complaints of High snw Blood Pressure, Headache, Nausea. 14:20 The patient has elevated blood pressure and discovered this Dr. Mann's office, set for snw lithotripsy next week. Noted pt's pressure to be elevated and sent to ED. Onset: The symptoms/episode began/occurred suddenly. Associated signs and symptoms: Pertinent positives: headache, nausea. Severity of symptoms: At its worst the blood pressure was 148 mm Hg. The patient has experienced a previous episode. The patient has been recently seen by a physician: as noted. Historical: - Allergies: 09:12 Ativan; iw 09:12 Codeine; iw 09:12 Compazine; iw 09:12 Morphine; iw 09:12 Reglan; iw 09:12 Latex, Natural Rubber; iw - Home Meds: 09:12 aspirin 81 mg Oral chew 1 tab once daily [Active]; atorvastatin 80 mg Oral tab iw [Active]; clonidine 0.2 mg/24 hr transdermal ptwk 1 patch once wkly [Active]; Colace 100 mg Oral cap [Active]; furosemide 20 mg Oral tab [Active]; gabapentin 300 mg Oral cap [Active]; glipizide 5 mg Oral tab [Active]; hydrocodone-acetaminophen 5-334 mg/10 mL Oral soln [Active]; magnesium oxide 400 mg Oral cap 400 mg twice a day [Active]; metoprolol tartrate 25 mg Oral tab [Active]; oxybutynin chloride 10 mg Oral tr24 1 tab once daily [Active]; pantoprazole 40 mg Oral TbEC [Active]; paroxetine HCl 40 mg Oral tab [Active]; potassium chloride 20 mEq Oral TbER [Active]; Zofran (as hydrochloride) 4 mg/5 mL Oral soln 10 mL 2 times per day [Active]; - PMHx: 09:12 CVA; Diabetes - NIDDM; DVT; Endometrosis; Hypertension; Myocardial infarction; iw - Immunization history:: Adult Immunizations up to date. - Social history:: Smoking status: Patient/guardian denies using tobacco. - Ebola Screening: : Patient negative for fever greater than or equal to 101.5 degrees Fahrenheit, and additional compatible Ebola Virus Disease symptoms Patient denies exposure to infectious person Patient denies travel to an Ebola-affected area in the 21 days before illness onset No symptoms or risks identified at this time. ROS: 14:20 Eyes: Negative for injury, pain, redness, and discharge, ENT: Negative for injury, snw pain, and discharge, Neck: Negative for injury, pain, and swelling, Cardiovascular: Negative for chest pain, palpitations, and edema, Respiratory: Negative for shortness of breath, cough, wheezing, and pleuritic chest pain, Abdomen/GI: Negative for abdominal pain, nausea, vomiting, diarrhea, and constipation, : Negative for injury, bleeding, discharge, and swelling, MS/Extremity: Negative for injury and deformity, Skin: Negative for injury, rash, and discoloration, Neuro: Negative for headache, weakness, numbness, tingling, and seizure. 14:20 Constitutional: Positive for body aches, fatigue, malaise. 14:20 Back: Positive for pain at rest, flank pain. Exam: 14:15 Head/Face: Normocephalic, atraumatic. Eyes: Pupils equal round and reactive to light, snw extra-ocular motions intact. Lids and lashes normal. Conjunctiva and sclera are non-icteric and not injected. Cornea within normal limits. Periorbital areas with no swelling, redness, or edema. ENT: Nares patent. No nasal discharge, no septal abnormalities noted. Tympanic membranes are normal and external auditory canals are clear. Oropharynx with no redness, swelling, or masses, exudates, or evidence of obstruction, uvula midline. Mucous membranes moist. Neck: Trachea midline, no thyromegaly or masses palpated, and no cervical lymphadenopathy. Supple, full range of motion without nuchal rigidity, or vertebral point tenderness. No Meningismus. Chest/axilla: Normal chest wall appearance and motion. Nontender with no deformity. No lesions are appreciated. Cardiovascular: Regular rate and rhythm with a normal S1 and S2. No gallops, murmurs, or rubs. Normal PMI, no JVD. No pulse deficits. Respiratory: Lungs have equal breath sounds bilaterally, clear to auscultation and percussion. No rales, rhonchi or wheezes noted. No increased work of breathing, no retractions or nasal flaring. +tachypnea Abdomen/GI: Soft, non-tender, with normal bowel sounds. No distension or tympany. No guarding or rebound. No evidence of tenderness throughout. 14:15 Skin: Warm, dry with normal turgor. Normal color with no rashes, no lesions, and no evidence of cellulitis. Neuro: Awake and alert, GCS 15, oriented to person, place, time, and situation. Cranial nerves II-XII grossly intact. Motor strength 5/5 in all extremities. Sensory grossly intact. Cerebellar exam normal. Normal gait. 14:15 Constitutional: The patient appears alert, anxious, in obvious distress, in obvious pain, restless, uncomfortable. 14:15 Back: pain, that is moderate. 14:15 Musculoskeletal/extremity: Extremities: grossly normal except: numbness to bilateral upper extremities. Vital Signs: 09:12 BP 156 / 107; Pulse 92; Resp 18; Temp 97.9(TE); Pulse Ox 98% on R/A; Weight 108.86 kg; iw Height 5 ft. 4 in. (162.56 cm); Pain 6/10; 11:32 BP 146 / 105; Pulse 79; Resp 20; Temp 98.2(O); Pulse Ox 96% on R/A; Pain 8/10; mh5 13:29 BP 125 / 74; Pulse 82; Resp 16; Pulse Ox 96% on R/A; tl3 15:57 BP 145 / 95; Pulse 77; Resp 18; Pulse Ox 96% on R/A; tl3 09:12 Body Mass Index 41.19 (108.86 kg, 162.56 cm) iw MDM: 10:04 Patient medically screened. snw 16:31 Data reviewed: vital signs, nurses notes. Data interpreted: Pulse oximetry: on room air snw is 96 %. Interpretation: acceptable. Counseling: I had a detailed discussion with the patient and/or guardian regarding: the historical points, exam findings, and any diagnostic results supporting the discharge/admit diagnosis, the presence of at least one elevated blood pressure reading (>120/80) during this emergency department visit, lab results, the need for outpatient follow up, to return to the emergency department if symptoms worsen or persist or if there are any questions or concerns that arise at home. Special discussion: Based on the history and exam findings, there is no indication for further emergent testing or inpatient evaluation. I discussed with the patient/guardian the need to see the urologist for further evaluation of the symptoms. 10/13 10:15 Order name: Basic Metabolic Panel; Complete Time: 12:08 10/13 10:15 Order name: CBC with Diff; Complete Time: 15:20 10/13 10:15 Order name: Hepatic Function; Complete Time: 12:08 10/13 10:15 Order name: Lipase; Complete Time: 12:08 10/13 10:15 Order name: Blood Culture Adult (2) 10/13 13:19 Order name: Urine Dipstick--Ancillary (enter results); Complete Time: 15:12 10/13 10:15 Order name: IV Saline Lock; Complete Time: 11:54 10/13 10:15 Order name: Labs collected and sent; Complete Time: 11:54 10/13 13:11 Order name: Labs - recollect needed; Complete Time: 13:41 10/13 13:12 Order name: Recheck B/P; Complete Time: 13:41 snw Administered Medications: 11:56 CANCELLED (other intervention used): fentaNYL (PF) 25 mcg IVP once snw 12:04 Drug: NS 0.9% 1000 ml Route: IV; Rate: 125 ml/hr; Site: left antecubital; ja1 12:21 Follow up: Response: No adverse reaction ja1 12:04 Drug: Phenergan 6.25 mg Route: IVP; Site: left antecubital; ja1 12:20 Follow up: Response: No adverse reaction; Nausea is decreased ja1 12:04 Drug: Demerol 25 mg Route: IVP; Site: left antecubital; ja1 12:21 Follow up: Response: No adverse reaction; Pain is decreased ja1 13:08 Follow up: Response: Pain is decreased ja1 12:45 Drug: cloNIDine 0.1 mg Route: PO; ja1 13:30 Follow up: Response: Blood pressure is lowered tl3 16:25 Drug: Demerol 50 mg Route: IM; Site: left gluteus; tl3 16:25 Follow up: Response: Medication administered at discharge. tl3 Disposition: 17:47 Co-signature as Attending Physician, Aniket Vera MD. rn Disposition: 10/13/18 16:19 Discharged to Home. Impression: Essential (primary) hypertension, Unspecified renal colic. - Condition is Stable. - Discharge Instructions: Hypertension, Kidney Stones, Renal Colic, Rehydration, Adult, Managing Your Hypertension. - Work release form, Medication Reconciliation Form, Thank You Letter, Antibiotic Education, Prescription Opioid Use form. - Follow up: Private Physician; When: 2 - 3 days; Reason: Recheck today's complaints, Continuance of care, Re-evaluation by your physician. Follow up: Emergency Department; When: As needed; Reason: Worsening of condition. Signatures: Dispatcher [employer] EDMS Debbi Keene, BLAISE-C TECHNICAL SUPPORT CONSULTANT-Csnw Tracie Yun, RN RN iw Aniket Vera MD MD rn Aguilar, Jose, RN RN ja1 Rubina Rdz RN RN tl3 Leigh Kebede Corrections: (The following items were deleted from the chart) 11:56 10:15 fentaNYL (PF) 25 mcg IVP once ordered. sn 16:40 16:19 10/13/2018 16:19 Discharged to Home. Impression: Essential (primary) tl3 hypertension; Unspecified renal colic. Condition is Stable. Forms are Medication Reconciliation Form, Thank You Letter, Antibiotic Education, Prescription Opioid Use. Follow up: Private Physician; When: 2 - 3 days; Reason: Recheck today's complaints, Continuance of care, Re-evaluation by your physician. Follow up: Emergency Department; When: As needed; Reason: Worsening of condition. snw
[2018-10-13] MEDS ORDERED: MEPERIDINE HCL 50 MG/ML AMP ONE (16:30)
[2018-10-13 16:51] VITALS: TEMP 98.2; O2SAT 96
[2018-10-13 16:54] VITALS: BP 145/95
--- NOTE | 2018-10-13 18:54 | EKG ---
Test Date: 2018-10-13 Test Time: 09:58:14 Frame Straightener: ARMANDO MEASUREMENT RESULTS: Intervals: Rate: 83 NV: 162 QRSD: 92 QT: 380 QTc: 446 [place]: P: 63 NV: 162 QRS: 31 T: 102 INTERPRETIVE STATEMENTS: Normal sinus rhythm T wave abnormality, consider lateral ischemia Abnormal ECG Compared to ECG 12/31/2017 14:36:31 T-wave abnormality now present Possible ischemia now present Sinus bradycardia no longer present ST (T wave) deviation no longer present Prolonged QT interval no longer present Electronically Signed On 10-13-18 18:53:31 VACUUM DRIER OPERATOR by Francisco Gentile
== END 2018-10-13 16:40 | disposition home or self-care (01) ==
LOC: ER 08:49
DX: I10 Essential (primary) hypertension (principal); N23 Unspecified renal colic; E11.9 Type 2 diabetes mellitus without complications; I25.2 Old myocardial infarction; Z79.82 Long term (current) use of aspirin; Z88.5 Allergy status to narcotic agent; Z88.8 Allergy status to other drugs, medicaments and biological substances; Z86.718 Personal history of other venous thrombosis and embolism; Z91.040 Latex allergy status; Z91.048 Other nonmedicinal substance allergy status
CPT/HCPCS: 36415; 80048; 80076; 81003; 83690; 85025; 87040; 93005; J2175; J2550; J3010; J7030

== ENCOUNTER 2019-07-12 20:04 | Emergency (ER) | payer OTHER ==
[2019-07-12] MEDS ORDERED: ONDANSETRON 4 MG/2 ML VIAL ONE (20:47)
[2019-07-12 20:51] LABS: Urine Blood TRACE (NEG); Urine Glucose NEGATIVE (NEG); Urine Protein 1+ (NEG); Urine pH 5.5 (5.0-7.0)
[2019-07-12 21:50] LABS: Absolute Lymphocytes (CBC) 1.9 K/uL (0.7-4.9); Basophils % 0.6 % (0-1.3); Hematocrit 42.5 % (36.0-45.0); Lymphocytes % 14.2 % (15.3-44.8); MPV 7.8 fL (7.6-11.3); RBC Red Blood Cell Count 5.05 M/uL (3.86-4.86)
[2019-07-12] MEDS ORDERED: FENTANYL CITR 100 MCG/2 ML ONE (22:05)
[2019-07-12] MEDS ORDERED: PROMETHAZINE 25 MG/ML VIAL ONE ×2 (22:05→22:15)
[2019-07-12] MEDS ORDERED: NA CHLORIDE 0.9% 100 ML IV ONE (22:05)
[2019-07-12] MEDS ORDERED: KETOROLAC 30 MG/ML INJ ONE (22:13)
[2019-07-12 22:21] LABS: Albumin 4.2 g/dL (3.4-5.0); Bilirubin Direct 0.2 mg/dL (0-0.2); Bilirubin Total 0.8 mg/dL (0.2-1.0); Potassium 3.8 mmol/L (3.5-5.1)
[2019-07-12] MEDS ORDERED: HYDROMORPHONE HCL 2 MG/ML inj ONE (23:52)
--- NOTE | 2019-07-13 00:38 | ER ---
Nurse's Notes [facility] Name: Jacy Thompson Age: 59 yrs Sex: Female : 1960 Arrival Date: 07/12/2019 Time: 20:09 Bed 17 Private MD: Diagnosis: Kidney stones, CHF, Peripheral edema Presentation: 07/12 20:16 Presenting complaint: Patient states: she was seen in PCP office at 1745 in [facility]. pt ak1 c/o nausea, bilateral leg pain with swelling. pt c/o left kidney pain. pt stated she was sent to [facility] ER but it was "packed" pt is a patient of Dr. Mann and was told by PCP to get a CT. Transition of care: patient was not received from another setting of care. Onset of symptoms is unknown. Risk Assessment: Do you want to hurt yourself or someone else? Patient reports no desire to harm self or others. Initial Sepsis Screen: Does the patient meet any 2 criteria? No. Patient's initial sepsis screen is negative. Does the patient have a suspected source of infection? No. Patient's initial sepsis screen is negative. Care prior to arrival: None. 20:16 Method Of Arrival: Ambulatory ak1 20:16 Acuity: TERRY 3 ak1 Triage Assessment: 20:18 General: Appears uncomfortable. ak1 Historical: - Allergies: 20:18 Ativan; ak1 20:18 Codeine; ak1 20:18 Compazine; ak1 20:18 Reglan; ak1 20:18 Morphine; ak1 20:18 Latex, Natural Rubber; ak1 - Home Meds: 20:18 aspirin 81 mg Oral chew 1 tab once daily [Active]; atorvastatin 80 mg Oral tab ak1 [Active]; clonidine 0.2 mg/24 hr transdermal ptwk 1 patch once wkly [Active]; Colace 100 mg Oral cap [Active]; furosemide 20 mg Oral tab [Active]; gabapentin 300 mg Oral cap [Active]; glipizide 5 mg Oral tab [Active]; hydrocodone-acetaminophen 5-334 mg/10 mL Oral soln [Active]; magnesium oxide 400 mg Oral cap 400 mg twice a day [Active]; metoprolol tartrate 25 mg Oral tab [Active]; oxybutynin chloride 10 mg Oral tr24 1 tab once daily [Active]; pantoprazole 40 mg Oral TbEC [Active]; paroxetine HCl 40 mg Oral tab [Active]; potassium chloride 20 mEq Oral TbER [Active]; Zofran (as hydrochloride) 4 mg/5 mL Oral soln 10 mL 2 times per day [Active]; - PMHx: 20:18 CVA; DVT; Endometrosis; Myocardial infarction; Hypertension; Diabetes - NIDDM; ak1 - Immunization history:: Adult Immunizations unknown. - Social history:: Smoking status: Patient/guardian denies using tobacco. - Ebola Screening: : No symptoms or risks identified at this time. Screenin:03 Abuse screen: Denies threats or abuse. Denies injuries from another. Nutritional ch screening: No deficits noted. Tuberculosis screening: No symptoms or risk factors identified. Fall Risk None identified. Assessment: 21:03 General: Appears in no apparent distress. uncomfortable, Behavior is cooperative, ch appropriate for age. Pain: Complains of pain in left low back, left lower quadrant, left femoral area, left inguinal area and left leg Pain currently is 9 out of 10 on a pain scale. Pain began gradually. Neuro: No deficits noted. Neuro: Reports headache. Cardiovascular:. Respiratory: Airway is patent Trachea midline Respiratory effort is even, unlabored, Breath sounds are clear bilaterally. GI: Abdomen is non-distended, obese, Pt is actively vomiting undigested food, Bowel sounds present X 4 quads. Abd is soft and non tender X 4 quads. : Reports pain flank(s), in lower back. Derm: Skin is pink, warm \\T\\ dry. 21:06 Reassessment: Fer in room to attempt IV access. pt states Phenergan is ch more effective than Zofran for her. 21:19 Reassessment: Patient appears in no apparent distress at this time. physician at bedside for assessment. Janay Carrizales at bedside to attempt US IV access. GI: Reports nausea, vomiting has stopped, states she feels better. 22:20 Reassessment: Patient appears in no apparent distress at this time. pt states she does ch not like fentanyl. states she can take thierry, Demerol, and Dilaudid. physician notified. 23:30 Reassessment: Patient appears in no apparent distress at this time. Patient and/or ch family updated on plan of care and expected duration. Pain level reassessed. Patient is alert, oriented x 3, equal unlabored respirations, skin warm/dry/pink. physician notified of pt pain level. pt medicated per orders. 07/13 00:09 Reassessment: Patient appears in no apparent distress at this time. Patient and/or ch family updated on plan of care and expected duration. Pain level reassessed. Patient is alert, oriented x 3, equal unlabored respirations, skin warm/dry/pink. Patient states feeling better. 00:52 Reassessment: Patient appears in no apparent distress at this time. pt states as well ch as having nausea, hypertension, vomiting and L sided pain, she has swelling to her L leg. pt also states she had a dvt in her R leg before. US contacted. awaiting US arrival. 01:46 Reassessment: Patient appears in no apparent distress at this time. pt is taken to US ch now. awaiting pt return. 03:00 Reassessment: Patient appears in no apparent distress at this time. Patient and/or ch family updated on plan of care and expected duration. Pain level reassessed. Patient is alert, oriented x 3, equal unlabored respirations, skin warm/dry/pink. physician reviews results with pt, plan of care, discharge, dx, and follow up care. pt medicated per orders. Vital Signs: 07/12 20:18 BP 208 / 109; Pulse 70; Resp 18; Temp 97.2; Pulse Ox 96% on R/A; Weight 111.13 kg (R); ak1 Height 5 ft. 4 in. (162.56 cm) (R); Pain 8/10; 21:19 BP 158 / 80; Pulse 65; Resp 16; Temp 98.8; Pulse Ox 97% on R/A; Pain 7/10; ch 23:00 BP 159 / 106; Pulse 70; Resp 16; Temp 98.9(O); Pulse Ox 99% on R/A; Pain 7/10; ch 07/13 00:23 BP 175 / 103; Pulse 62; Resp 14; Temp 98.9; Pulse Ox 99% on R/A; ch 03:00 BP 162 / 102; Pulse 64; Resp 16; Pulse Ox 99% on R/A; Pain 7/10; ch 07/12 20:18 Body Mass Index 42.05 (111.13 kg, 162.56 cm) ak1 ED Course: 07/12 20:09 Patient arrived in ED. es 20:15 Joaquín Joyner MD is Attending Physician. kdr 20:17 Triage completed. ak1 20:18 Arm band placed on Patient placed in an exam room, on a stretcher, Patient notified of ak1 wait time. 20:45 Missed attempt(s): 22 gauge 24 gauge in left forearm. Bleeding controlled, band aid ch applied, catheter tip intact. 20:55 Danitza Soto, RN is Primary Nurse. ch 21:03 Patient has correct armband on for positive identification. Bed in low position. Call ch light in reach. Side rails up X 1. Adult w/ patient. Pulse ox on. NIBP on. Warm blanket given. 21:03 No provider procedures requiring assistance completed. ch 21:19 Missed attempt(s): 22 gauge in right forearm. antecubital area. attempted by Maria Ines. ch Bleeding controlled, band aid applied, catheter tip intact. 21:30 Initial lab(s) drawn, by me, sent to lab. Inserted saline lock: 20 gauge in left bb antecubital area, using aseptic technique. Blood collected. 22:10 IV discontinued, intact, bleeding controlled, Pressure dressing applied, PT IV is ch causing her pain two min into the Phenergan administration. 100mL NS bag diluting Phenergan is immediately turned off. IV will not give blood return. pt has hard knot under skin. IV removed. no signs of infiltration. pt c/o pain to the site. color remains pink, pt has full ROM of arm. pt denies pain after 10 min. Will continue to monitor former IV site. no signs of extravasation. 22:32 CT completed. Patient tolerated procedure well. Patient moved to CT. Patient moved back ma from CT. 22:39 CT Stone Protocol In Process Unspecified. EDMS 07/13 02:09 Ultrasound completed. Patient tolerated well. Patient taken to ultrasound. via lc3 wheelchair. Patient moved back from ultrasound. 02:11 US Extremity Venous W Compression Augie In Process Unspecified. EDMS Administered Medications: 07/12 21:59 Drug: Phenergan 12.5 mg {Note: Phenergan placed in 100 mL bag and placed on pump. .} ch Route: IVP; Rate: 600 ml/hr; Infused Over: 10 mins; Site: left antecubital; 22:01 Follow up: Response: Adverse reaction, Physician notified; Adverse reaction, Physician ch notified- pt c/o sharp pain to L AC. pt IV will not flush or draw. IV DC. IV flushed prior to Phenergen administration. 22:25 Follow up: Phenergan held. ch 22:15 Drug: TORadol - Ketorolac 15 mg Route: IM; Site: left gluteus; ch 23:05 Follow up: Response: No adverse reaction ch 22:15 Drug: Phenergan 12.5 mg Route: IM; Site: left ventrogluteal; ch 23:05 Follow up: Response: No adverse reaction ch 22:25 Not Given (Patient Refused): fentaNYL (PF) 50 mcg IVP once; RASS on ADMIN: Combtv4, ch Very Agttd3, Agttd2, Rstlss1, AlertClm0, Drwsy-1, Lt Sdtn-2, Mod Sdtn-3, Dp Sdtn-4, UnArsble-5 23:55 Drug: Dilaudid 2 mg Route: IM; Site: right gluteus; 07/13 00:52 Follow up: Response: No adverse reaction; Marked relief of symptoms ch 00:09 Not Given (Wrong route): Dilaudid 2 mg IVP once; RASS on ADMIN: Combtv4, Very Agttd3, ch Agttd2, Rstlss1, AlertClm0, Drwsy-1, Lt Sdtn-2, Mod Sdtn-3, Dp Sdtn-4, UnArsble-5 00:11 Not Given (Patient Refused): Zofran 4 mg IVP once; over 2 minutes ch 01:02 Drug: LaSIX 80 mg Route: PO; ch 01:02 Follow up: Response: No adverse reaction ch 02:50 Drug: Phenergan 12.5 mg Route: IM; Site: left vastus lateralis; ch 03:10 Follow up: Response: No adverse reaction ch Intake: Outcome: 00:37 Discharge ordered by . kdr 02:15 Discharge ordered by MD. kdr 02:50 Discharged to home via wheelchair, with family. ch 02:50 Condition: stable 02:50 Discharge instructions given to patient, family, Instructed on discharge instructions, follow up and referral plans. no drinking with medication, no driving heavy equipment, medication usage, physician reviews results, discharge, plan of care, diagnosis, and questions from pt extensively in room. pt given copy of labs and instructed on how to get results of imaging studies. pt given nausea medication prior to discharge per pt request. pt urinates twice prior to discharge. 03:06 Patient left the ED. Signatures: Dispatcher [employer] Danitza Jimenez, RN RN Joaquín Joyner MD MD kdr Salyer, Edna es Ballard, Brenda, RN RN Eli David RN RN ak1 Ap Guzman Nathan nj Corrections: (The following items were deleted from the chart) 00:23 00:09 BP 159 / 106; Pulse 70bpm; Resp 16bpm; Pulse Ox 99% RA; Temp 98.9F Oral; Pain ch 7/10; ch
--- NOTE | 2019-07-13 00:38 | EDPHYS ---
Physician Documentation [facility] Name: Jacy Thompson Age: 59 yrs Sex: Female : 1960 Arrival Date: 07/12/2019 Time: 20:09 Bed 17 Private MD: ED Physician Joaquín Joyner HPI: 07/13 00:29 This 59 yrs old Female presents to ER via Ambulatory with complaints of kdr Kidney pain, nausea,high blood pressure. 00:29 The patient presents with abdominal pain. kdr 00:29 The patient presents with Left groin. Onset: The symptoms/episode began/occurred kdr gradually, 3 day(s) ago. The symptoms radiate to the left flank. Associated signs and symptoms: Pertinent positives: nausea and vomiting, Pertinent negatives: blood in stools, chest pain, constipation, diarrhea, dysuria, headache, hematuria, shortness of breath, vaginal discharge, vomiting, vomiting blood. The symptoms are described as achy, constant, waxing/waning. Modifying factors: The symptoms are alleviated by nothing, the symptoms are aggravated by breathing deeply, movement, touching the area. Severity of pain: At its worst the pain was moderate severe just prior to arrival, in the emergency department the pain is unchanged. The patient has not experienced similar symptoms in the past. The patient has been recently seen by a physician: the patient's primary care provider. The patient was seen by PCP and sent to [place] for eval - was too busy so they came here since she had seen Dr. Mann previously . Historical: - Allergies: 07/12 20:18 Ativan; ak1 20:18 Codeine; ak1 20:18 Compazine; ak1 20:18 Reglan; ak1 20:18 Morphine; ak1 20:18 Latex, Natural Rubber; ak1 - Home Meds: 20:18 aspirin 81 mg Oral chew 1 tab once daily [Active]; atorvastatin 80 mg Oral tab ak1 [Active]; clonidine 0.2 mg/24 hr transdermal ptwk 1 patch once wkly [Active]; Colace 100 mg Oral cap [Active]; furosemide 20 mg Oral tab [Active]; gabapentin 300 mg Oral cap [Active]; glipizide 5 mg Oral tab [Active]; hydrocodone-acetaminophen 5-334 mg/10 mL Oral soln [Active]; magnesium oxide 400 mg Oral cap 400 mg twice a day [Active]; metoprolol tartrate 25 mg Oral tab [Active]; oxybutynin chloride 10 mg Oral tr24 1 tab once daily [Active]; pantoprazole 40 mg Oral TbEC [Active]; paroxetine HCl 40 mg Oral tab [Active]; potassium chloride 20 mEq Oral TbER [Active]; Zofran (as hydrochloride) 4 mg/5 mL Oral soln 10 mL 2 times per day [Active]; - PMHx: 20:18 CVA; DVT; Endometrosis; Myocardial infarction; Hypertension; Diabetes - NIDDM; ak1 - Immunization history:: Adult Immunizations unknown. - Social history:: Smoking status: Patient/guardian denies using tobacco. - Ebola Screening: : No symptoms or risks identified at this time. ROS: 07/13 00:29 Constitutional: Negative for fever, chills, and weight loss, Eyes: Negative for injury, kdr pain, redness, and discharge, ENT: Negative for injury, pain, and discharge, Neck: Negative for injury, pain, and swelling, Cardiovascular: Negative for chest pain, palpitations, and edema, Respiratory: Negative for shortness of breath, cough, wheezing, and pleuritic chest pain, Back: Negative for injury and pain, : Negative for injury, bleeding, discharge, and swelling, MS/Extremity: Negative for injury and deformity, Skin: Negative for injury, rash, and discoloration, Neuro: Negative for headache, weakness, numbness, tingling, and seizure activity. Psych: Negative for depression, anxiety, suicide ideation, homicidal ideation, and hallucinations, Allergy/Immunology: Negative for hives, rash, and allergies, Endocrine: Negative for neck swelling, polydipsia, polyuria, polyphagia, and marked weight changes, Hematologic/Lymphatic: Negative for swollen nodes, abnormal bleeding, and unusual bruising. Abdomen/GI: Positive for abdominal pain, nausea and vomiting, Left fank and groin pain. Exam: 00:29 Constitutional: This is a well developed, well nourished patient who is awake, alert, kdr and in mild to moderat distress. Head/Face: Normocephalic, atraumatic. Eyes: Pupils equal round and reactive to light, extra-ocular motions intact. Lids and lashes normal. Conjunctiva and sclera are non-icteric and not injected. Cornea within normal limits. Periorbital areas with no swelling, redness, or edema. Neck: Trachea midline, no thyromegaly or masses palpated, and no cervical lymphadenopathy. Supple, full range of motion without nuchal rigidity, or vertebral point tenderness. No Meningismus. Chest/axilla: Normal chest wall appearance and motion. Nontender with no deformity. No lesions are appreciated. Cardiovascular: Regular rate and rhythm with a normal S1 and S2. No gallops, murmurs, or rubs. Normal PMI, no JVD. No pulse deficits. Respiratory: Lungs have equal breath sounds bilaterally, clear to auscultation and percussion. No rales, rhonchi or wheezes noted. No increased work of breathing, no retractions or nasal flaring. Back: No spinal tenderness. No costovertebral tenderness. Full range of motion. Skin: Warm, dry with normal turgor. Normal color with no rashes, no lesions, and no evidence of cellulitis. MS/ Extremity: Pulses equal, no cyanosis. Neurovascular intact. Full, normal range of motion. Neuro: Awake and alert, GCS 15, oriented to person, place, time, and situation. Cranial nerves II-XII grossly intact. Motor strength 5/5 in all extremities. Sensory grossly intact. Cerebellar exam normal. Normal gait. Psych: Awake, alert, with orientation to person, place and time. Behavior, mood, and affect are within normal limits. 00:29 Abdomen/GI: Inspection: obese Bowel sounds: active, diminished, in all quadrants, Palpation: soft, mild abdominal tenderness, in the left lower quadrant. Vital Signs: 07/12 20:18 BP 208 / 109; Pulse 70; Resp 18; Temp 97.2; Pulse Ox 96% on R/A; Weight 111.13 kg (R); ak1 Height 5 ft. 4 in. (162.56 cm) (R); Pain 8/10; 21:19 BP 158 / 80; Pulse 65; Resp 16; Temp 98.8; Pulse Ox 97% on R/A; Pain 7/10; ch 23:00 BP 159 / 106; Pulse 70; Resp 16; Temp 98.9(O); Pulse Ox 99% on R/A; Pain 7/10; ch 07/13 00:23 BP 175 / 103; Pulse 62; Resp 14; Temp 98.9; Pulse Ox 99% on R/A; ch 03:00 BP 162 / 102; Pulse 64; Resp 16; Pulse Ox 99% on R/A; Pain 7/10; ch 07/12 20:18 Body Mass Index 42.05 (111.13 kg, 162.56 cm) ak1 MDM: 00:29 Data reviewed: vital signs, nurses notes, lab test result(s), radiologic studies. kdr Counseling: I had a detailed discussion with the patient and/or guardian regarding: the historical points, exam findings, and any diagnostic results supporting the discharge/admit diagnosis, lab results, radiology results, the need for outpatient follow up. 00:37 Patient medically screened. [facility] 07/12 20:42 Order name: Urine Dipstick--Ancillary (enter results); Complete Time: 21:16 em1 07/12 21:15 Order name: Basic Metabolic Panel; Complete Time: 22:48 07/12 21:15 Order name: CBC with Diff; Complete Time: 22:48 07/12 21:15 Order name: Creatinine for Radiology; Complete Time: 22:48 07/12 21:15 Order name: Hepatic Function; Complete Time: 22:48 07/12 21:15 Order name: Lipase; Complete Time: 22:48 07/12 21:51 Order name: CT Stone Protocol 07/13 00:49 Order name: US Extremity Venous W Compression Augie 07/12 20:42 Order name: Urine Dipstick-Ancillary (obtain specimen); Complete Time: 20:42 em 07/12 21:15 Order name: IV Saline Lock; Complete Time: 21:32 07/12 21:15 Order name: Labs collected and sent; Complete Time: 21:32 gs Administered Medications: 07/12 21:59 Drug: Phenergan 12.5 mg {Note: Phenergan placed in 100 mL bag and placed on pump. .} Route: IVP; Rate: 600 ml/hr; Infused Over: 10 mins; Site: left antecubital; 22:01 Follow up: Response: Adverse reaction, Physician notified; Adverse reaction, Physician ch notified- pt c/o sharp pain to L AC. pt IV will not flush or draw. IV DC. IV flushed prior to Phenergen administration. 22:25 Follow up: Phenergan held. ch 22:15 Drug: TORadol - Ketorolac 15 mg Route: IM; Site: left gluteus; ch 23:05 Follow up: Response: No adverse reaction ch 22:15 Drug: Phenergan 12.5 mg Route: IM; Site: left ventrogluteal; ch 23:05 Follow up: Response: No adverse reaction ch 22:25 Not Given (Patient Refused): fentaNYL (PF) 50 mcg IVP once; RASS on ADMIN: Combtv4, ch Very Agttd3, Agttd2, Rstlss1, AlertClm0, Drwsy-1, Lt Sdtn-2, Mod Sdtn-3, Dp Sdtn-4, UnArsble-5 23:55 Drug: Dilaudid 2 mg Route: IM; Site: right gluteus; 07/13 00:52 Follow up: Response: No adverse reaction; Marked relief of symptoms ch 00:09 Not Given (Wrong route): Dilaudid 2 mg IVP once; RASS on ADMIN: Combtv4, Very Agttd3, ch Agttd2, Rstlss1, AlertClm0, Drwsy-1, Lt Sdtn-2, Mod Sdtn-3, Dp Sdtn-4, UnArsble-5 00:11 Not Given (Patient Refused): Zofran 4 mg IVP once; over 2 minutes ch 01:02 Drug: LaSIX 80 mg Route: PO; ch 01:02 Follow up: Response: No adverse reaction ch 02:50 Drug: Phenergan 12.5 mg Route: IM; Site: left vastus lateralis; ch 03:10 Follow up: Response: No adverse reaction Disposition: 07/13/19 02:15 Discharged to Home. Impression: Kidney stones, CHF, Peripheral edema. - Condition is Stable. - Discharge Instructions: Kidney Stones, [id number], Heart Failure, [id number], Peripheral Edema. - Prescriptions for Flomax 0.4 mg Oral Capsule, Sust. Release 24 hr - take 1 capsule by ORAL route once daily 1/2 hour following the same meal each day; 10 capsule. Bactrim DS 800- 160 mg Oral Tablet - take 1 tablet by ORAL route every 12 hours for 3 days; 6 tablet. promethazine 25 mg Oral Tablet - take 1 tablet by ORAL route every 4-6 hours As needed; 12 tablet. - Medication Reconciliation Form, Thank You Letter form. - Follow up: Private Physician; When: 2 - 3 days; Reason: If symptoms return, Further diagnostic work-up, Recheck today's complaints, Continuance of care, Re-evaluation by your physician. - Problem is an acute exacerbation. - Symptoms have improved. Signatures: Dispatcher [employer] EDDanitza Chun RN RN Maria Ines Crouch RN RN aa1 Joaquín Joyner MD MD kdr Corey, Hardy em1 Eli Quijano RN RN ak1 Mook Koch MD MD gs Corrections: (The following items were deleted from the chart) 00:47 00:37 07/13/2019 00:37 Discharged to Home. Impression: Nephrolithiasis - Left. kdr Condition is Stable. Forms are SBAR form, Medication Reconciliation Form, Thank You Letter, Antibiotic Education, Prescription Opioid Use. Follow up: Private Physician; When: 2 - 3 days; Reason: If symptoms return, Further diagnostic work-up, Recheck today's complaints, Continuance of care, Re-evaluation by your physician. Problem is an acute exacerbation. Symptoms have improved. kdr 03:06 02:15 07/13/2019 02:15 Discharged to Home. Impression: Kidney stones, CHF, Peripheral ch edema. Condition is Stable. Forms are Medication Reconciliation Form, Thank You Letter, Antibiotic Education, Prescription Opioid Use. Follow up: Private Physician; When: 2 - 3 days; Reason: If symptoms return, Further diagnostic work-up, Recheck today's complaints, Continuance of care, Re-evaluation by your physician. Problem is an acute exacerbation. Symptoms have improved. kdr
[2019-07-13] MEDS ORDERED: FUROSEMIDE 40 MG TABLET ONE (00:54)
[2019-07-13] MEDS ORDERED: PROMETHAZINE 25 MG/ML VIAL ONE (02:41)
[2019-07-13 04:06] VITALS: TEMP 98.9; O2SAT 99
[2019-07-13 04:09] VITALS: BP 162/102
--- NOTE | 2019-07-13 07:44 | RAD REPORT ---
EXAM DESCRIPTION: USExtrem Venous W Compress Bil07/13/2019 2:11 am CLINICAL HISTORY: Bilateral leg swelling COMPARISON: 2017 FINDINGS: The common femoral, superficial femoral, popliteal and posterior tibial veins bilaterally are compressible and demonstrate augmentation. Doppler demonstrates good flow. IMPRESSION: No evidence of deep venous thrombosis involving either lower extremity.
--- NOTE | 2019-07-13 11:59 | RAD REPORT ---
EXAM DESCRIPTION: CT - Stone Protocol - 07/13/2019 4:18 am CLINICAL HISTORY: Left flank pain COMPARISON: None. TECHNIQUE: CT ABDOMEN PELVIS WITHOUT IV CONTRAST on 07/12/2019 9:51 PM CDT This exam was performed according to our departmental dose-optimization program, which includes autom ated exposure control, adjustment of the mA and/or kV according to patient size and/or use of iterati ve reconstruction technique. FINDINGS: Lower lungs are clear. Abdomen: The liver is normal in appearance. There is no biliary dilatation. Cholecystectomy was perfo rmed. The pancreas and spleen are normal in appearance. Adrenal glands are normal. Kidneys are mildly atrophic. There is a small lower pole right renal cyst. There are multiple small left renal cyst. Th ere are two lower pole left renal calculi measuring up to 4 mm. Abdominal aorta is normal in course and caliber without aneurysm. There is no free air. There is no r etroperitoneal adenopathy. Pelvis: There is no bowel obstruction. Urinary bladder is unremarkable. There is no free fluid. Hyste rectomy was performed. Appendix is not clearly seen. Skeleton: There are no acute osseous findings. No suspicious bony lesions. IMPRESSION: Mild left nephrolithiasis without hydronephrosis. No definite acute inflammatory process. Electronically signed by: Attila Uribe MD 07/12/2019 10:53 PM CDT Due to temporary technical issues with the PACS/Fluency reporting system, reports are being signed by the in house radiologist as a courtesy to ensure prompt reporting. The interpreting radiologist is f ully responsible for the content of the report.
== END 2019-07-13 03:06 | disposition home or self-care (01) ==
LOC: ER 20:04
DX: N20.0 Calculus of kidney (principal); I50.9 Heart failure, unspecified; R60.9 Edema, unspecified; I10 Essential (primary) hypertension; E11.9 Type 2 diabetes mellitus without complications; I25.2 Old myocardial infarction; Z88.6 Allergy status to analgesic agent; Z88.8 Allergy status to other drugs, medicaments and biological substances; Z91.040 Latex allergy status
CPT/HCPCS: 85025; 80048; 36415; 80076; 81003; 83690; 76377; 74176; 93970; 96372; 96374; 99284; J2550 ×3; J1170; J2405; J3010